=== PATIENT | female | born 1980 | race Caucasian/White ===

== ENCOUNTER 2017-07-02 19:41 | Emergency (ER) | payer BC ==
[2017-07-02] MEDS ORDERED: Sodium Chloride 0.9% 10 ML Syringe FLUSH PRN (19:46)
[2017-07-02] MEDS ORDERED: Ondansetron 4 MG/2 ML SDV IVPUSH ONE (19:46)
[2017-07-02] MEDS ORDERED: Ketorolac 30 MG/ML SDV IVPUSH ONE (19:46)
[2017-07-02] MEDS ORDERED: Sodium Chloride 0.9% 1,000 ML IV ONE (19:46)
[2017-07-02] MEDS ORDERED: Sodium Chloride 0.9% 2.5 ML Syringe FLUSH PRN (19:46)
--- NOTE | 2017-07-02 19:49 | EDM.PDOC ---
ED HPI GENERAL MEDICAL PROBLEM - General Chief Complaint: Abdominal Pain Stated Complaint: ABDOMIANL PAIN Time Seen by Provider: 07/02/17 19:44 - History of Present Illness INITIAL COMMENTS - FREE TEXT/NARRATIVE: HISTORY AND PHYSICAL: History of present illness: Patient is a 37-year-old white female with past medical history significant for cholelithiasis with had appendectomy prior presents with concern of acute abdominal pain this came on suddenly is described as severe patient equivocates regarding nausea there's been no vomiting no diarrhea no trauma no fever no chills no chest pain shortness of breath other concern is poorly localized. Review of systems: As per history of present illness and below otherwise all systems reviewed and negative. Past medical history: As per history of present illness and as reviewed below otherwise noncontributory. Surgical history: As per history of present illness and as reviewed below otherwise noncontributory. Social history: No reported history of drug or alcohol abuse. Family history: As per history of present illness and as reviewed below otherwise noncontributory. Physical exam: HEENT: Atraumatic, normocephalic, pupils reactive, negative for conjunctival pallor or scleral icterus, mucous membranes moist, throat clear, neck supple, nontender, trachea midline. Lungs: Clear to auscultation, breath sounds equal bilaterally, chest nontender. Heart: S1S2, regular, negative for clicks, rubs, or JVD. Abdomen: Soft, nondistended, no localized tenderness. Negative for masses or hepatosplenomegaly. Negative for costovertebral tenderness. Pelvis: Stable nontender. Genitourinary: Deferred. Rectal: Deferred. Extremities: Atraumatic, negative for cords or calf pain. Neurovascular unremarkable. Neuro: Awake, alert, oriented. Cranial nerves II through XII unremarkable. Cerebellum unremarkable. Motor and sensory unremarkable throughout. Exam nonfocal. Diagnostics: CBC CMP and lipase UA hCG CT of midpelvis chest x-ray urine drug screen Therapeutics: Saline 1 L bolus and Toradol 30 mg IV Zofran 4 mg IV Impression: #1 abdominal pain Definitive disposition and diagnosis as appropriate pending reevaluation and review of above. - Related Data Allergies Allergy/AdvReac Type Severity Reaction Status Date / Time amoxicillin Allergy Vomiting Verified 07/02/17 19:48 Home Meds: Home Meds . [No Known Home Meds] 07/02/17 [History] ED ROS GENERAL - Review of Systems Review Of Systems: ROS reveals no pertinent complaints other than HPI. ED EXAM, GENERAL - Physical Exam Exam: See Below (See dictation) Course - Vital Signs Last Recorded V/S: Last Vital Signs Temp 36.1 C 07/02/17 19:44 Pulse 81 07/02/17 21:33 Resp 18 07/02/17 21:33 BP 121/73 07/02/17 21:33 Pulse Ox 96 07/02/17 21:33 - Orders/Labs/Meds Orders: Active Orders 24 hr Category Date Time Status Abdomen Pelvis wo Cont [CT] Stat Exams 07/02/17 19:46 Taken Chest 1V Frontal [CR] Stat Exams 07/02/17 19:46 Taken COMPREHENSIVE METABOLIC PN,CMP [CHEM] Stat Lab 07/02/17 19:57 Received CULTURE BLOOD [BC] Stat Lab 07/02/17 21:05 Received CULTURE BLOOD [BC] Stat Lab 07/02/17 21:20 Received INR,PT,PROTHROMBIN TIME [COAG] Stat Lab 07/02/17 19:57 Received LIPASE [CHEM] Stat Lab 07/02/17 19:57 Received UA W/MICROSCOPIC [URIN] Stat Lab 07/02/17 19:45 Received Sodium Chloride 0.9% [Saline Flush] Med 07/02/17 19:46 Active 10 ml FLUSH ASDIRECTED PRN Sodium Chloride 0.9% [Saline Flush] Med 07/02/17 19:46 Active 2.5 ml FLUSH ASDIRECTED PRN Blood Culture x2 Reflex Set [OM.PC] Stat Oth 07/02/17 19:45 Ordered Saline Lock Insert [OM.PC] Stat Oth 07/02/17 19:45 Ordered Medication Orders Sodium Chloride (Saline Flush) 10 ml FLUSH ASDIRECTED PRN PRN Reason: Keep Vein Open Last Admin: 07/02/17 19:51 Dose: 10 ml Sodium Chloride (Saline Flush) 2.5 ml FLUSH ASDIRECTED PRN PRN Reason: Keep Vein Open Last Admin: 07/02/17 19:50 Dose: 2.5 ml Labs: Laboratory Tests 07/02/17 07/02/17 07/02/17 Range/Units 19:45 19:57 21:22 WBC 9.37 (4.0-11.0) K/uL RBC 5.09 (4.30-5.90) M/uL Hgb 14.0 (12.0-16.0) g/dL Hct 40.9 (36.0-46.0) % MCV 80.4 (80.0-98.0) fL MCH 27.5 (27.0-32.0) pg MCHC 34.2 (31.0-37.0) g/dL RDW Std Deviation 42.6 (28.0-62.0) fl RDW Coeff of Tea 15 (11.0-15.0) % Plt Count 294 (150-400) K/uL MPV 10.60 (7.40-12.00) fL Neut % (Auto) 63.9 (48.0-80.0) % Lymph % (Auto) 27.4 (16.0-40.0) % [place] % (Auto) 6.9 (0.0-15.0) % Eos % (Auto) 1.6 (0.0-7.0) % Baso % (Auto) 0.2 (0.0-1.5) % Neut # (Auto) 6.0 H (1.4-5.7) K/uL Lymph # (Auto) 2.6 H (0.6-2.4) K/uL [place] # (Auto) 0.7 (0.0-0.8) K/uL Eos # (Auto) 0.2 (0.0-0.7) K/uL Baso # (Auto) 0.0 (0.0-0.1) K/uL Nucleated RBC % 0.0 /100WBC Nucleated RBCs # 0 K/uL Urine HCG, Qual NEGATIVE (NEGATIVE) Urine Opiates Screen NEGATIVE (NEGATIVE) Ur Oxycodone Screen NEGATIVE (NEGATIVE) Urine Methadone Screen NEGATIVE (NEGATIVE) Ur Barbiturates Screen NEGATIVE (NEGATIVE) Ur Phencyclidine Scrn NEGATIVE (NEGATIVE) Ur Amphetamine Screen NEGATIVE (NEGATIVE) U Methamphetamines Scrn NEGATIVE (NEGATIVE) U Benzodiazepines Scrn NEGATIVE (NEGATIVE) U Cocaine Metab Screen NEGATIVE (NEGATIVE) U Marijuana (THC) Screen POSITIVE (NEGATIVE) Meds: Medications Generic Name Dose Route Start Last Admin Trade Name Freq PRN Reason Stop Dose Admin Sodium Chloride 10 ml 07/02/17 19:46 07/02/17 19:51 Saline Flush FLUSH 10 ml ASDIRECTED PRN Administration Keep Vein Open Sodium Chloride 2.5 ml 07/02/17 19:46 07/02/17 19:50 Saline Flush FLUSH 2.5 ml ASDIRECTED PRN Administration Keep Vein Open Discontinued Medications Generic Name Dose Route Start Last Admin Trade Name Freq PRN Reason Stop Dose Admin Sodium Chloride 1,000 mls @ 999 mls/hr 07/02/17 19:46 07/02/17 19:58 Normal Saline IV 07/02/17 20:46 999 mls/hr STAT ONE Administration Ketorolac Tromethamine 30 mg 07/02/17 19:46 07/02/17 19:58 Toradol IVPUSH 07/02/17 19:47 30 mg ONETIME ONE Administration Ondansetron HCl 4 mg 07/02/17 19:46 07/02/17 19:58 Zofran IVPUSH 07/02/17 19:47 4 mg ONETIME ONE Administration Departure - Departure Time of Disposition: 22:15 Disposition: Home, Self-Care 01 Condition: Good Clinical Impression: Abdominal pain - Discharge Information Forms: ED Department Discharge Additional Instructions: The following information is given to patients seen in the emergency department who are being discharged to home. This information is to outline your options for follow-up care. We provide all patients seen in our emergency department with a follow-up referral. The need for follow-up, as well as the timing and circumstances, are variable depending upon the specifics of your emergency department visit. If you don't have a primary care physician on staff, we will provide you with a referral. We always advise you to contact your personal physician following an emergency department visit to inform them of the circumstance of the visit and for follow-up with them and/or the need for any referrals to a consulting specialist. The emergency department will also refer you to a specialist when appropriate. This referral assures that you have the opportunity for followup care with a specialist. All of these measure are taken in an effort to provide you with optimal care, which includes your followup. Under all circumstances we always encourage you to contact your private physician who remains a resource for coordinating your care. When calling for followup care, please make the office aware that this follow-up is from your recent emergency room visit. If for any reason you are refused follow-up, please contact the [facility] emergency department at and asked to speak to the emergency department charge nurse. JUAN A [facility] Specialty Care - General Surgery Professional Building [address] [place] [address], [address] [place] [address] Clear liquids 24 hours follow-up primary medical doctor schedule general surgery appointment above call to schedule return as needed as discussed - My Orders Last 24 Hours: My Active Orders 07/02/17 19:45 UA W/MICROSCOPIC [URIN] Stat Blood Culture x2 Reflex Set [OM.PC] Stat Saline Lock Insert [OM.PC] Stat 07/02/17 19:46 Abdomen Pelvis wo Cont [CT] Stat Chest 1V Frontal [CR] Stat Sodium Chloride 0.9% [Saline Flush] 10 ml FLUSH ASDIRECTED PRN Sodium Chloride 0.9% [Saline Flush] 2.5 ml FLUSH ASDIRECTED PRN 07/02/17 19:57 COMPREHENSIVE METABOLIC PN,CMP [CHEM] Stat INR,PT,PROTHROMBIN TIME [COAG] Stat LIPASE [CHEM] Stat 07/02/17 21:05 CULTURE BLOOD [BC] Stat 07/02/17 21:20 CULTURE BLOOD [BC] Stat - Assessment/Plan Last 24 Hours: My Active Orders 07/02/17 19:45 UA W/MICROSCOPIC [URIN] Stat Blood Culture x2 Reflex Set [OM.PC] Stat Saline Lock Insert [OM.PC] Stat 07/02/17 19:46 Abdomen Pelvis wo Cont [CT] Stat Chest 1V Frontal [CR] Stat Sodium Chloride 0.9% [Saline Flush] 10 ml FLUSH ASDIRECTED PRN Sodium Chloride 0.9% [Saline Flush] 2.5 ml FLUSH ASDIRECTED PRN 07/02/17 19:57 COMPREHENSIVE METABOLIC PN,CMP [CHEM] Stat INR,PT,PROTHROMBIN TIME [COAG] Stat LIPASE [CHEM] Stat 07/02/17 21:05 CULTURE BLOOD [BC] Stat 07/02/17 21:20 CULTURE BLOOD [BC] Stat
[2017-07-02 22:08] LABS: CHLORIDE,CL 107 mmol/L (98-107); SODIUM,NA 139 mmol/L (136-145)
--- NOTE | 2017-07-04 16:19 | CR ---
EXAM DATE: 07/02/17 PATIENT'S AGE: 37 Patient: CONOR SANTOYO Facility: [place], [place] Site . Site : 1980 Study: XRay Chest [id number]/17/2018 9:41:16 PM Ordering Physician: Sim Brito Final Report: INDICATION: Chest pain; shortness of breath. TECHNIQUE: Portable AP chest. FINDINGS: Normal size cardiac silhouette. Clear lung sood with no evidence of acute pneumonic infiltrates or CHF. No pneumothorax or pleural effusion. Impression:negative chest. Dictated by Drea Rush MD @ Jul 02 2017 9:43PM (Electronic Signature) Report Signed by Proxy. MYRANDA
--- NOTE | 2017-07-04 16:19 | CT ---
EXAM DATE: 07/02/17 PATIENT'S AGE: 37 Patient: CONOR SANTOYO Facility: [place], [place] Site . Site : 1980 Study: CT Abdomen/Pelvis [id number]/17/2018 9:51:54 PM Ordering Physician: Sim Brito Final Report: INDICATION: EPIGASTRIC PAIN BEGAN 2-[address] ABDOMEN AND PELVIS WITHOUT CONTRAST TECHNIQUE: Multidetector CT imaging was performed through the abdomen and pelvis without intravenous or oral contrast (renal stone CT protocol). Coronal and sagittal reconstructions were generated. COMPARISON: None. FINDINGS: No stones are visualized within the kidneys, ureters, or urinary bladder. There is no ureteral dilation, hydronephrosis, or perinephric/ periureteral stranding to suggest ureteral obstruction. Included portions of the lower chest show the lung bases to be clear. No abnormalities are demonstrated in the unenhanced liver, spleen, gallbladder, pancreas, stomach, and adrenals. Bowel loops are of normal caliber and demonstrate no wall thickening. The appendix is not clearly identified but no findings suggestive of appendicitis are demonstrated. No free fluid or free air is identified. The abdominal aorta appears normal in caliber. No abnormally enlarged lymph nodes are seen. The urinary bladder, uterus, and adnexal regions are within normal limits. Visualized bones show no acute findings. IMPRESSION: No acute abnormality identified. No cause for the patient`s symptoms is apparent. CARLOS URIBE MD [employer] Dictated by: Zach Uribe MD @ 07/02/2017 22:01:38 (Electronic Signature) Report Signed by Proxy. MYRANDA
== END 2017-07-02 22:35 | disposition home or self-care (01) ==
LOC: MW.ED 19:41
DX: R10.9 Unspecified abdominal pain (principal); Z90.49 Acquired absence of other specified parts of digestive tract; Z88.1 Allergy status to other antibiotic agents
CPT/HCPCS: 36415; 71045; 74176; 80053; 80305; 81001; 81025; 83690; 85025; 85610; 87040; 96361; 96374; 96375; 99285; J1885; J2405; J7040; 99283

== ENCOUNTER 2020-11-25 10:08 | Emergency (ER) | payer OTHER ==
[2020-11-25] MEDS ORDERED: Ketorolac 60 MG/2 ML SDV IM ONE (12:21)
[2020-11-25] MEDS ORDERED: Acetaminophen 500 MG Tab PO ONE (12:21)
--- NOTE | 2020-11-25 14:37 | CR ---
INDICATION: Low back injury 2 days ago TECHNIQUE: Three views of the lumbar spine COMPARISON: none FINDINGS: The lumbar vertebral bodies are of normal height. No fracture is demonstrated. There is normal spinal alignment. There is no significant degenerative disc height loss. The paraspinal soft tissues are unremarkable. IMPRESSION: No acute abnormality. Dictated by Jania Poon MD @ 11/25/2020 2:35:[address] Jania Poon @ Nov 25 2020 2:35PM
--- NOTE | 2020-11-25 14:43 | EDM.PDOC ---
ED HPI GENERAL MEDICAL PROBLEM - General Chief Complaint: Back Pain or Injury Stated Complaint: PULLED MUSCLE IN BACK Time Seen by Provider: 11/25/20 10:29 Source of Information: Reports: Patient History Limitations: Reports: No Limitations - History of Present Illness INITIAL COMMENTS - FREE TEXT/NARRATIVE: HISTORY AND PHYSICAL: History of present illness: Patient is a 40-year-old female who presents emergency room today with concern of low back pain x2 days. Patient states that her back pain started approximately 2 days ago when she was doing laundry and states that she had a towel full of dirty clothes that she threw over her back. Patient states that the pile of close was heavier than she anticipated and she did not use proper body mechanics and felt a strain of her low back. Patient states that since then, she has had pain with moving and has to move slower. Patient denies any loss or retention of bowel bladder function or saddle anesthesia. Patient states that she did use IV drug use approximately 10 years ago but has not used any IV drugs since. Patient denies any cancer history. Patient states that she is sexually active and not on control so there is a chance of being . Patient denies fever, chills, chest pain, shortness of breath, or cough. Denies headache, neck stiff ness, change in vision, syncope, or near syncope. Denies na usea, vomiting, abdominal pain, diarrhea, constipation, or dysuria. Has not noted any blood in urine or stool. Patient has been eating and drinking appropriately. Review of systems: As per history of present illness and below otherwise all systems reviewed and negative. Past medical history: As per history of present illness and as reviewed below otherwise noncontributory. Surgical history: As per history of present illness and as reviewed below otherwise noncontributory. Social history: See social history for further information Family history: As per history of present illness and as reviewed below otherwise noncontributory. Physical exam: General: Patient is alert, oriented, and in no acute distress. Patient sitting comfortably on exam table. Vitals stable and reviewed by me. HEENT: Atraumatic, normocephalic, pupils equal and reactive bilaterally, negative for conjunctival pallor or scleral icterus, mucous membranes moist, TMs normal bilaterally, throat clear, neck supple, nontender, trachea midline. No drooling or trismus noted. No meningeal signs. No hot potato voice noted. Lungs: Clear to auscultation, breath sounds equal bilaterally, chest nontender. Heart: S1S2, regular rate and rhythm without overt murmur Abdomen: Soft, nondistended, nontender. Negative for masses or hepatosplenomegaly. Negative for costovertebral tenderness. Pelvis: Stable nontender. Genitourinary: Deferred. Rectal: Deferred. Skin: Intact, warm, dry. No lesions or rashes noted. Extremities/musculoskeletal: No obvious deformity of the complete spine. No step-offs, crepitus, or point tenderness to palpation of the complete spine. Patient does have tenderness to palpation of the left-sided paraspinous muscle of the lumbar spine. Patient does have full range of motion of the complete spine but does have pain with range of motion of the lumbar spine. Patellar reflexes intact bilaterally. Straight leg raise intact bilaterally. Heel/toe gait intact. Patient is able to ambulate today in the ED. Otherwise, atraumatic, negative for cords or calf pain. Neurovascular unremarkable. Neuro: Awake, alert, oriented. Cranial nerves II through XII unremarkable. Cerebellum unremarkable. Motor and sensory unremarkable throughout. Exam nonfocal. Notes: hcg negative. Signs and symptoms that were prompt return to the ED thoroughly discussed with patient. Discussed importance for follow-up with her primary care provider. Voices understanding and is agreeable to plan of care. Denies any further questions or concerns at this time. Diagnostics: Urine hCG, lumbar x-ray Therapeutics: Toradol, Tylenol (I did offer Norflex IM injection, however, patient does not have a ride today) Prescription: Diclofenac, Flexeril Impression: Acute low back pain Plan: 1. When resting please lay on a flat firm surface. Limit your mobility to prevent muscle stiffness. Get up to ambulate/move around/gentle stretching multiple times throughout the day. May alternate heat and ice to painful areas. 2. Tylenol as needed for back pain. Otherwise, take the prescribed Flexeril and diclofenac as directed. Diclofenac as an anti-inflammatory medication so do not take any additional NSAIDs with this medication, such as naproxen, ibuprofen, or Aleve. Flexeril, this medication may cause drowsiness, so do not take it while driving or needing to be functioning outside of the home. 3. Follow-up with your primary care provider as discussed. Return to the ED as needed and as discussed. Definitive disposition and diagnosis as appropriate pending reevaluation and review of above. low back Pain Score (Numeric/FACES): 4 - Related Data Allergies Allergy/AdvReac Type Severity Reaction Status Date / Time amoxicillin Allergy Vomiting Verified 11/25/20 11:33 Home Meds: Home Meds Cyclobenzaprine [Flexeril] 10 mg PO TID PRN #9 tab 11/25/20 [Rx] Diclofenac Sodium [Voltaren] 75 mg PO BIDMEALS PRN #15 tab.cr 11/25/20 [Rx] Pantoprazole [ProTONIX] 40 mg PO DAILY 11/25/20 [History] Past Medical History Gastrointestinal History: Reports: GERD - Infectious Disease History Infectious Disease History: Reports: Chicken Pox, Hepatitis C - Past Surgical History HEENT Surgical History: Reports: Oral Surgery, Tonsillectomy GI Surgical History: Reports: Appendectomy Social & Family History - Family History Cardiac: Reports: CAD, Heart Failure, Hypertension Neurological: Reports: Parkinson's - Tobacco Use Tobacco Use Status *Q: Never Tobacco User - Caffeine Use Caffeine Use: Reports: Coffee, Energy Drinks, Soda, Tea - Recreational Drug Use Recreational Drug Use: Yes Drug Use in Last 12 Months: Yes Recreational Drug Type: Reports: Marijuana/Hashish Recreational Drug Use Frequency: Daily ED ROS GENERAL - Review of Systems Review Of Systems: Comprehensive ROS is negative, except as noted in HPI. ED EXAM, GENERAL - Physical Exam Exam: See Below (See dictation) Course - Vital Signs Last Recorded V/S: Last Vital Signs Temp 96.6 F L 11/25/20 13:16 Pulse 76 11/25/20 13:16 Resp 16 11/25/20 13:16 BP 110/70 11/25/20 13:16 Pulse Ox 97 11/25/20 13:16 - Orders/Labs/Meds Labs: Laboratory Tests 11/25/20 Range/Units 12:04 Urine HCG, Qual NEGATIVE (NEGATIVE) Meds: Medications Discontinued Medications Generic Name Dose Route Start Last Admin Trade Name Freq PRN Reason Stop Dose Admin Acetaminophen 1,000 mg 11/25/20 12:21 11/25/20 13:14 Acetaminophen 500 Mg Tab PO 11/25/20 12:22 1,000 mg ONETIME ONE Administration Ketorolac Tromethamine 60 mg 11/25/20 12:21 11/25/20 13:13 Ketorolac 60 Mg/2 Ml Sdv IM 11/25/20 12:22 60 mg ONETIME ONE Administration Departure - Departure Time of Disposition: 14:42 Disposition: Home, Self-Care 01 Clinical Impression: Acute low back pain Qualifiers: Back pain laterality: left Sciatica presence: unspecified whether sciatica present Qualified Code(s): M54.5 - Low back pain - Discharge Information Prescriptions: Cyclobenzaprine [Flexeril] 10 mg PO TID PRN #9 tab PRN Reason: Spasms Diclofenac Sodium [Voltaren] 75 mg PO BIDMEALS PRN #15 tab.cr PRN Reason: Pain Instructions: Acute Back Pain, Adult Referrals: Veronica Richards DO [Primary Care Provider] - Forms: ED Department Discharge Additional Instructions: The following information is given to patients seen in the emergency department who are being discharged to home. This information is to outline your options for follow-up care. We provide all patients seen in our emergency department with a follow-up referral. The need for follow-up, as well as the timing and circumstances, are variable depending upon the specifics of your emergency department visit. If you don't have a primary care physician on staff, we will provide you with a referral. We always advise you to contact your personal physician following an emergency department visit to inform them of the circumstance of the visit and for follow-up with them and/or the need for any referrals to a consulting specialist. The emergency department will also refer you to a specialist when appropriate. This referral assures that you have the opportunity for follow-up care with a specialist. All of these measure are taken in an effort to provide you with optimal care, which includes your follow-up. Under all circumstances we always encourage you to contact your private physician who remains a resource for coordinating your care. When calling for follow-up care, please make the office aware that this follow-up is from your recent emergency room visit. If for any reason you are refused follow-up, please contact the [facility] Emergency Department at and asked to speak to the emergency department charge nurse. [facility] Primary Care [address] [place] [id number] [facility] [address] [place] [id number] 1. When resting please lay on a flat firm surface. Limit your mobility to prevent muscle stiffness. Get up to ambulate/move around/gentle stretching multiple times throughout the day. May alternate heat and ice to painful areas. 2. Tylenol as needed for back pain. Otherwise, take the prescribed Flexeril and diclofenac as directed. Diclofenac as an anti-inflammatory medication so do not take any additional NSAIDs with this medication, such as naproxen, ibuprofen, or Aleve. Flexeril, this medication may cause drowsiness, so do not take it while driving or needing to be functioning outside of the home. 3. Follow-up with your primary care provider as discussed. Return to the ED as needed and as discussed. Sepsis Event Note (ED) - Evaluation Sepsis Screening Result: No Definite Risk - Focused Exam Vital Signs: Vital Signs Temp Pulse Resp BP Pulse Ox 11/25/20 13:16 96.6 F L 76 16 110/70 97 11/25/20 11:31 96.5 F L 78 18 140/84 95
== END 2020-11-25 15:05 | disposition home or self-care (01) ==
LOC: MW.ED 10:08
DX: M54.5 Low back pain (principal); Z88.0 Allergy status to penicillin
CPT/HCPCS: 72100; 81025; 96372; 99283; A9270; J1885

== ENCOUNTER 2020-11-30 08:16 | Emergency (ER) | payer OTHER ==
[2020-11-30] MEDS ORDERED: diphenhydrAMINE 50 MG/ML SDV IVPUSH ONE (08:51)
[2020-11-30] MEDS ORDERED: Haloperidol Lactate 5 MG/ML SDV IM ONE (08:51)
[2020-11-30 09:35] LABS: BLOOD UREA NITROGEN,BUN 12 mg/dL (7.0-18.0); CHLORIDE,CL 105 mmol/L (98-107); GLUCOSE RANDOM 113 mg/dL (74-106); LIPASE 68 U/L (73-393); POTASSIUM,K 3.8 mmol/L (3.5-5.1); SODIUM,NA 140 mmol/L (136-145)
--- NOTE | 2020-11-30 11:31 | US ---
INDICATION: Abdominal pain. TECHNIQUE: Abdominal ultrasound: Grayscale and color Doppler images. FINDINGS: Liver: No mass lesion. The liver span is 16.5 cm. Portal vein flow is hepatopetal. Gallbladder: Mobile stone. Wall is normal thickness 3 mm. Common bile duct: 3 mm. Right kidney: Unremarkable. 11.2 cm in length. IMPRESSION: 1. Gallstone. No biliary dilatation. 2. No tenderness elicited over the gallbladder with palpation. Dictated by Tano Alexis MD @ 11/30/2020 11:30:[address] Tano Alexis @ Nov 30 2020 11:30AM
--- NOTE | 2020-11-30 12:38 | EDM.PDOC ---
ED HPI GENERAL MEDICAL PROBLEM - General Chief Complaint: Gastrointestinal Problem Stated Complaint: FOOD PIOSONING CRAMPING PAIN Time Seen by Provider: 11/30/20 08:18 - History of Present Illness INITIAL COMMENTS - FREE TEXT/NARRATIVE: CHIEF COMPLAINT(S): "I got food poisoning." HISTORY OF PRESENT ILLNESS: This is a 40-year-old woman with a past medical history of GERD who comes to the emergency department with a chief complaint of "I got food poisoning." The patient states that on November 01, 2020 she ate in the evening and she woke up in the morning with nausea, vomiting, diarrhea and cramping abdominal pain on November 02, 2020. She states that since then every time she eats she gets some cramping in her abdomen which she describes as 8 out of 10 without any radiation. She states that eating seems to make the pain worse and she has some associated diarrhea. She states that she is has not had any nausea and vomiting but does feel intermittently bloated. She denies any melena, hematochezia, hematemesis or bilious emesis. She states that she has not yet tried any pain medication but she has had Pepto-Bismol and Gas-X and her pantoprazole which have not seem to help. She states that her pain seems to be fine during most of the day and then when she is at work it seems to worsen. She states that she has had decreased sleeping. She denies any vaginal bleeding, vaginal discharge or back pain. REVIEW OF SYSTEMS: Constitutional: Denies fever, chills. Eyes: Denies eye pain Ears, Nose, Mouth, & Throat: Denies earache Cardiovascular: Denies chest pain Respiratory: Denies shortness of breath Gastrointestinal: Positive for abdominal pain and diarrhea. Denies nausea, vomiting hematochezia, hematemesis, bilious emesis Genitourinary: Denies hematuria, dysuria, vaginal bleeding, vaginal discharge Skin:Denies a rash MSK: Denies joint pain Neurological: Denies blurred vision Psychiatric: Denies depression PAST MEDICAL HISTORY: As per history of present illness and as reviewed below otherwise noncontributory. SURGICAL HISTORY: As per history of present illness and as reviewed below otherwise noncontributory. SOCIAL HISTORY: As per history of present illness and as reviewed below otherwise noncontributory. FAMILY HISTORY: As per history of present illness and as reviewed below otherwise noncontributory. EXAMINATION OF ORGAN SYSTEMS/BODY AREAS: Constitutional: Blood pressure is 152/64, heart rate 68, respiratory rate 18 with an oxygen saturation of 98% on room air. Temperature 35.9 temporally General: Anxious appearing woman who is squirming around in bed Psychiatric: Anxious appearing but is cooperative Eyes: No scleral icterus or conjunctival erythema ENMT: Moist mucous membranes. No pharyngeal erythema Cardiovascular: Regular, rate, and rhythm. No gallops, murmurs, or rubs. Bilateral upper extremity pulses symmetric and intact. No peripheral edema. No JVD. Respiratory: Lungs clear to auscultation bilaterally. No wheezes, rales, or rhonchi. Gastrointestinal: Soft, nondistended, tenderness to palpation in the epigastric and right upper quadrant. Positive Prakash's. Negative McBurney's. No rebound or guarding. Normoactive bowel sounds Genitourinary: No suprapubic tenderness no CVA tenderness musculoskeletal: Normal range of motion. Skin: No lesions or abrasions. Neurological: Alert, GCS 15 MEDICAL DECISION MAKING AND COURSE IN THE ED WITH INTERPRETATION/REVIEW OF DIAGNOSTIC STUDIES: This is a 40-year-old woman with a past medical history of medical marijuana use who comes to the emergency department with approximately 2 weeks of epigastric pain associated with diarrhea who no longer has any vomiting with some continued nausea. At this time the patient's vitals continue to remain stable. We will provide the patient with Haldol and Benadryl for pain and nausea relief. At this time differential includes cholecystitis, exacerbation of her GERD versus marijuana hyperemesis. Will obtain CBC, CMP, lipase, urinalysis. Will obtain a right upper quadrant ultrasound. We will provide the patient with 1 L of lactated Ringer's bolus Laboratory: CBC is unremarkable. CMP unremarkable. Lipase normal. Urinalysis was trace for hematuria otherwise unremarkable. The radiological images were viewed by myself along with reading the report from the radiologist. Right upper quadrant ultrasound reveals cholelithiasis without any evidence of cholecystitis. Patient was able to tolerate p.o. and was feeling much better. I did discuss results with the patient. Encouraged patient to follow-up with general surgery if she had continued pain or to return to the emergency department. She was amenable to discharge at this time and had no further questions. DISPOSITION: The patient was discharged home in stable condition. The patient will follow up with general surgery in 5 to 7 days CONDITION: Fair PROCEDURES: None FINAL IMPRESSION(S)/DIAGNOSES: Acute right upper quadrant abdominal pain secondary to cholelithiasis Dominick Johnson M.D. Abdomen Pain Score (Numeric/FACES): 10 - Related Data Allergies Allergy/AdvReac Type Severity Reaction Status Date / Time amoxicillin Allergy Vomiting Verified 11/30/20 08:35 Home Meds: Home Meds Pantoprazole [ProTONIX] 40 mg PO DAILY 11/25/20 [History] Past Medical History Gastrointestinal History: Reports: GERD - Infectious Disease History Infectious Disease History: Reports: Chicken Pox, Hepatitis C - Past Surgical History HEENT Surgical History: Reports: Oral Surgery, Tonsillectomy GI Surgical History: Reports: Appendectomy Social & Family History - Family History Cardiac: Reports: CAD, Heart Failure, Hypertension Neurological: Reports: Parkinson's - Tobacco Use Tobacco Use Status *Q: Never Tobacco User - Caffeine Use Caffeine Use: Reports: None - Recreational Drug Use Recreational Drug Use: Yes Recreational Drug Type: Reports: Marijuana/Hashish Recreational Drug Use Frequency: Daily ED ROS GENERAL - Review of Systems Review Of Systems: See Below ED EXAM, GENERAL - Physical Exam Exam: See Below Course - Vital Signs Last Recorded V/S: Last Vital Signs Temp 35.9 C L 11/30/20 08:35 Pulse 65 11/30/20 12:42 Resp 16 11/30/20 12:42 BP 117/62 11/30/20 12:42 Pulse Ox 98 11/30/20 12:42 - Orders/Labs/Meds Labs: Laboratory Tests 11/30/20 11/30/20 11/30/20 Range/Units 08:33 08:57 08:57 WBC 6.02 (4.0-11.0) K/uL RBC 4.41 (4.30-5.90) M/uL Hgb 12.2 (12.0-16.0) g/dL Hct 36.8 (36.0-46.0) % MCV 83.4 (80.0-98.0) fL MCH 27.7 (27.0-32.0) pg MCHC 33.2 (31.0-37.0) g/dL RDW Std Deviation 45.1 (28.0-62.0) fl RDW Coeff of Tea 15 (11.0-15.0) % Plt Count 229 (150-400) K/uL MPV 10.80 (7.40-12.00) fL Neut % (Auto) 44.2 L (48.0-80.0) % Lymph % (Auto) 40.9 H (16.0-40.0) % [place] % (Auto) 10.1 (0.0-15.0) % Eos % (Auto) 4.5 (0.0-7.0) % Baso % (Auto) 0.3 (0.0-1.5) % Neut # (Auto) 2.7 (1.4-5.7) K/uL Lymph # (Auto) 2.5 H (0.6-2.4) K/uL [place] # (Auto) 0.6 (0.0-0.8) K/uL Eos # (Auto) 0.3 (0.0-0.7) K/uL Baso # (Auto) 0.0 (0.0-0.1) K/uL Nucleated RBC % 0.0 /100WBC Nucleated RBCs # 0 K/uL Sodium 140 (136-145) mmol/L Potassium 3.8 (3.5-5.1) mmol/L Chloride 105 (98-107) mmol/L Carbon Dioxide 26.0 (21.0-32.0) mmol/L BUN 12 (7.0-18.0) mg/dL Creatinine 0.8 (0.6-1.0) mg/dL Est Cr Clr Drug Dosing 90.90 mL/min Estimated GFR (MDRD) > 60.0 ml/min Glucose 113 H (74-106) mg/dL Calcium 7.7 L (8.5-10.1) mg/dL Total Bilirubin 0.2 (0.2-1.0) mg/dL AST 30 (15-37) IU/L ALT 41 (14-63) IU/L Alkaline Phosphatase 85 (46-116) U/L Total Protein 6.8 (6.4-8.2) g/dL Albumin 3.2 L (3.4-5.0) g/dL Globulin 3.6 (2.6-4.0) g/dL Albumin/Globulin Ratio 0.9 (0.9-1.6) Lipase 68 L (73-393) U/L Urine Color YELLOW Urine Appearance CLEAR Urine pH 6.0 (5.0-8.0) Ur Specific [place] 1.025 (1.001-1.035) Urine Protein NEGATIVE (NEGATIVE) mg/dL Urine Glucose (UA) NEGATIVE (NEGATIVE) mg/dL Urine Ketones NEGATIVE (NEGATIVE) mg/dL Urine Occult Blood TRACE-INTACT H (NEGATIVE) Urine Nitrite NEGATIVE (NEGATIVE) Urine Bilirubin NEGATIVE (NEGATIVE) Urine Urobilinogen 0.2 (<2.0) EU/dL Ur Leukocyte Esterase NEGATIVE (NEGATIVE) Urine RBC 0-1 (0-2/HPF) Urine WBC 0-2 (0-5/HPF) Ur Epithelial Cells FEW (NONE-FEW) Urine Bacteria FEW (NEGATIVE) Urine Mucus LIGHT (NONE-MOD) Meds: Medications Discontinued Medications Generic Name Dose Route Start Last Admin Trade Name Freq PRN Reason Stop Dose Admin Diphenhydramine HCl 50 mg 11/30/20 08:51 11/30/20 09:06 Diphenhydramine 50 Mg/Ml Sdv IVPUSH 11/30/20 08:52 50 mg ONETIME ONE Administration Haloperidol Lactate 5 mg 11/30/20 08:51 11/30/20 09:06 Haloperidol Lactate 5 Mg/Ml Sdv IM 11/30/20 08:52 5 mg ONETIME ONE Administration Departure - Departure Time of Disposition: 12:36 Disposition: Home, Self-Care 01 Condition: Fair Clinical Impression: Cholelithiasis without obstruction - Discharge Information *PRESCRIPTION DRUG MONITORING PROGRAM REVIEWED*: No *COPY OF PRESCRIPTION DRUG MONITORING REPORT IN PATIENT PRAMOD: No Instructions: Cholelithiasis, [id number] Referrals: Veronica Richards DO [Primary Care Provider] - Forms: ED Department Discharge Additional Instructions: Your evaluated today on an emergent basis. At this time we did find a gallstone in your gallbladder but no signs of infection. If you have continued symptoms, fever, inability to eat or drink I would like you to return to the emergency department. If not I would like you to follow-up with general surgery so that she can have evaluated for outpatient removal of your gallbladder. [facility] [place] - General Surgery Professional Building [address] [place] [address], [address] [place] [address] The patient is informed of any results of their evaluation and diagnostic workup and all questions are answered. They are given discharge instructions and return precautions. The patient is stable for discharge. The patient states they understand and agree with the plan and that they will return if their symptoms get worse or if they have any new concerns. The following information is given to patients seen in the emergency department who are being discharged to home. This information is to outline your options for follow-up care. We provide all patients seen in our emergency department with a follow-up referral. The need for follow-up, as well as the timing and circumstances, are variable depending upon the specifics of your emergency department visit. If you don't have a primary care physician on staff, we will provide you with a referral. We always advise you to contact your personal physician following an emergency department visit to inform them of the circumstance of the visit and for follow-up with them and/or the need for any referrals to a consulting spe cialist. The emergency department will also refer you to a specialist when appropriate. This referral assures that you have the opportunity for follow-up care with a specialist. All of these measure are taken in an effort to provide you with optimal care, which includes your follow-up. Under all circumstances we always encourage you to contact your private physician who remains a resource for coordinating your care. When calling for follow-up care, please make the office aware that this follow-up is from your recent emergency room visit. If for any reason you are refused follow-up, please contact the [facility] Emergency Department at and asked to speak to the emergency department charge nurse. Sepsis Event Note (ED) - Focused Exam Vital Signs: Vital Signs Temp Pulse Resp BP Pulse Ox 11/30/20 12:42 65 16 117/62 98 11/30/20 09:08 72 16 132/82 98 11/30/20 08:35 35.9 C L 68 18 152/64 H 98
== END 2020-11-30 12:46 | disposition home or self-care (01) ==
LOC: MW.ED 08:16
DX: K80.20 Calculus of gallbladder without cholecystitis without obstruction (principal); Z88.0 Allergy status to penicillin; K21.9 Gastro-esophageal reflux disease without esophagitis; Z79.899 Other long term (current) drug therapy
CPT/HCPCS: 36415; 76705; 80053; 81001; 83690; 85025; 96374; 96375; 99284; J1200; J1630; 99283

== ENCOUNTER 2020-12-04 05:54 | Observation (INO) | payer OTHER ==
[2020-12-04] MEDS ORDERED: Sodium Chloride 0.9% 1,000 ML IV ONE (06:20)
[2020-12-04] MEDS ORDERED: Ondansetron 4 MG/2 ML SDV IVPUSH ONE (06:20)
[2020-12-04] MEDS ORDERED: Sodium Chloride 0.9% 2.5 ML Syringe FLUSH PRN ×2 (06:20→11:51)
[2020-12-04] MEDS ORDERED: Dicyclomine 10 MG Cap PO ONE (06:20)
[2020-12-04] MEDS ORDERED: Ketorolac 15 MG/ML SDV IVPUSH ONE (06:20)
[2020-12-04] MEDS ORDERED: Sodium Chloride 0.9% 10 ML Syringe FLUSH PRN ×2 (06:20→11:51)
--- NOTE | 2020-12-04 06:20 | EDM.PDOC ---
<Pascual Anna - Last Filed: 12/05/20 06:03> ED HPI GENERAL MEDICAL PROBLEM - General Chief Complaint: Abdominal Pain Stated Complaint: GALL BLADDER PAIN Time Seen by Provider: 12/04/20 06:11 - History of Present Illness INITIAL COMMENTS - FREE TEXT/NARRATIVE: HISTORY AND PHYSICAL: History of present illness: This is a 40-year-old female with history significant for an appendectomy, hepatitis C, cholelithiasis, who presents to the ER today complaining of severe pain to her right upper quadrant and radiating to her back. Patient reports that she has been here twice within the last couple weeks secondary to severe pain in her gallbladder. Patient denies any recent fevers, shakes, chills. Patient reports nausea with no vomiting. Patient does admit to diarrhea for the last 2 to 3 weeks. Patient denies any dysuria, frequency, urgency, dark-colored urine. Patient denies any melena, bright red blood per rectum, erin colored stools. Patient denies any jaundice. Patient denies any chest pain or shortness of breath. Patient denies any cough cold or rhinorrhea. Patient reports decreased p.o. intake secondary to pain. Patient denies any vaginal discharge or discomfort. Patient reports that the pain woke her up from sleep today. Review of systems: As per history of present illness and below otherwise all systems reviewed and negative. Past medical history: As per history of present illness and as reviewed below otherwise noncontributory. Surgical history: As per history of present illness and as reviewed below otherwise noncontributory. Social history: No reported history of drug abuse. Family history: As per history of present illness and as reviewed below otherwise noncontributory. Physical exam: This patient was seen and evaluated during the 2019 SARS-CoV-2 novel coronavirus pandemic period. Community viral transmission is ongoing at time of this encounter and the emergency department is operating under pandemic response procedures. Constitutional: Patient is oriented to person, place, and time. Appears well- developed and well-nourished. No distress. HEENT: Moist mucous membranes Head: Normocephalic and atraumatic Eyes: Right eye exhibits no discharge. Left eye exhibits no discharge. No scleral icterus Neck: Normal range of motion. No tracheal deviation present. Cardiovascular: Normal rate and regular rhythm. Pulmonary: Effort normal, no respiratory distress. Abd: Soft, nondistended, no rebound/guarding, no psoas or obturator signs, no tenderness at Mcberney's point, no Prakash's sign. Pt does not present with an exam that would be consistent with an acute surgical abdomen at this time. Severe tenderness to palpation to the right upper quadrant. Musculoskeletal: Normal range of motion Neurologic: Alert and oriented to person, place and time. Skin: [place], warm and dry. Psychiatric: Normal mood and affect. Behavior is normal. Judgment and thought content normal. Nursing note and vital signs have been reviewed Diagnostics: CBC, CMP, lipase, ultrasound right upper quadrant to rule out acute cholecystitis or choledocholithiasis. Therapeutics: Fentanyl, Toradol, NSS, Zofran Assessment and plan: 40-year-old female who presents ER today complaining of severe right upper quadrant pain similar to the pain that she was here for last week and was diagnosed with cholelithiasis. Patient reports that the pain woke her from sleep today and is in the right upper quadrant and appears to be consistent with biliary pain. Patient will be given adequate analgesia here in the ED and will obtain a repeat ultrasound to determine if there is any stones that passed and are causing ductal dilatation. Patient is otherwise clinically and hemodynamically stable. 7 AM: Care signed out to Dr. Hogue with labs and ultrasound of the right upper quadrant pending. Disposition will be made per Dr. Hogue's result findings. Definitive disposition and diagnosis as appropriate pending reevaluation and review of above. Abdomen Pain Score (Numeric/FACES): 10 - Related Data Allergies Allergy/AdvReac Type Severity Reaction Status Date / Time amoxicillin Allergy Vomiting Verified 12/04/20 13:48 Home Meds: Home Meds Pantoprazole [ProTONIX] 40 mg PO DAILY 11/25/20 [History] ClonazePAM [KlonoPIN] 0.5 mg PO DAILY PRN 12/04/20 [History] Past Medical History Cardiovascular History: Reports: None Respiratory History: Reports: None Gastrointestinal History: Reports: GERD, Other (See Below) Other Gastrointestinal History: Gallstones Genitourinary History: Reports: None [employer] History: Reports: None Musculoskeletal History: Reports: None Neurological History: Reports: None Psychiatric History: Reports: None Endocrine/Metabolic History: Reports: None Insulin Pump Model and Hand Rug Cleaner: None Hematologic History: Reports: None Immunologic History: Reports: None Oncologic (Cancer) History: Reports: None Dermatologic History: Reports: None - Infectious Disease History Infectious Disease History: Reports: Chicken Pox, Hepatitis C - Past Surgical History Head Surgeries/Procedures: Reports: None HEENT Surgical History: Reports: Oral Surgery, Tonsillectomy GI Surgical History: Reports: Appendectomy Social & Family History - Family History Cardiac: Reports: CAD, Heart Failure, Hypertension Neurological: Reports: Parkinson's - Caffeine Use Caffeine Use: Reports: None - Recreational Drug Use Recreational Drug Use: Yes Drug Use in Last 12 Months: Yes Recreational Drug Type: Reports: Other (see below) Other Recreational Drug Type: Medical Marijuana ED ROS GENERAL - Review of Systems Review Of Systems: See Below ED EXAM, GENERAL - Physical Exam Exam: See Below Departure - Departure Disposition: Refer to Observation Clinical Impression: Cholelithiasis, Abdominal pain - Discharge Information <James Hogue - Last Filed: 12/05/20 07:18> Course - Vital Signs Text/Narrative:: Differential diagnosis: Acute cholecystitis, biliary colic, pancreatitis, pneumonia, PE, ACS, other Patient presents as outlined above. Patient has gallstone with hydrops of the gallbladder. She is still persistently tender despite pain medications in the emergency department. Surgery evaluated the patient and feels that with the gallbladder distention the entire clinical picture that this represents early acute cholecystitis. Admission, antibiotics and surgical resection Last Recorded V/S: Last Vital Signs Temp 36.3 C 12/05/20 04:34 Pulse 59 L 12/05/20 04:34 Resp 15 12/05/20 04:34 BP 119/56 L 12/05/20 04:34 Pulse Ox 96 12/05/20 04:34 - Orders/Labs/Meds Orders: Active Orders 24 hr Category Date Time Status Patient Status [ADT] Routine ADT 12/04/20 11:51 Active Ambulate [RC] ASDIRECTED Care 12/04/20 11:51 Active Oxygen Therapy [RC] PRN Care 12/04/20 11:51 Active Pulse Oximetry [RC] CONTINUOUS Care 12/04/20 11:51 Active RT Incentive Spirometry [RC] ASDIRECTED Care 12/04/20 11:51 Active Vital Signs [RC] PER UNIT ROUTINE Care 12/04/20 11:51 Active Lactated Ringers [Ringers, Lactated] 1,000 ml Med 12/04/20 12:00 Active IV ASDIRECTED Ondansetron [Zofran] Med 12/04/20 11:52 Active 4 mg IVPUSH Q6H PRN Pantoprazole [ProTONIX IV] 40 mg Med 12/05/20 09:00 Active Sodium Chloride 0.9% [Normal Saline] 10 ml IV DAILY Sodium Chloride 0.9% [Normal Saline] Med 12/04/20 11:51 Active 10 ml IV ASDIRECTED PRN Sodium Chloride 0.9% [Saline Flush] Med 12/04/20 06:20 Active 10 ml FLUSH ASDIRECTED PRN Sodium Chloride 0.9% [Saline Flush] Med 12/04/20 11:51 Active 10 ml FLUSH ASDIRECTED PRN Sodium Chloride 0.9% [Saline Flush] Med 12/04/20 06:20 Active 2.5 ml FLUSH ASDIRECTED PRN Sodium Chloride 0.9% [Saline Flush] Med 12/04/20 11:51 Active 2.5 ml FLUSH ASDIRECTED PRN diphenhydrAMINE [Benadryl] Med 12/04/20 11:51 Active 25 mg IVPUSH Q4H PRN Peripheral IV Insertion Adult [OM.PC] Routine Oth 12/04/20 11:51 Ordered Saline Lock Insert [OM.PC] Stat Oth 12/04/20 06:20 Ordered Resuscitation Status Routine Resus Stat 12/04/20 11:51 Ordered Medication Orders Diphenhydramine HCl (Diphenhydramine 50 Mg/Ml Sdv) 25 mg IVPUSH Q4H PRN PRN Reason: Itching Hydromorphone HCl (Hydromorphone 1 Mg/Ml Syringe) 0.5 mg IVPUSH Q1H PRN PRN Reason: Abdominal Pain Last Admin: 12/05/20 00:02 Dose: 0.5 mg Documented by: BILL Lactated Ringer's (Ringers, Lactated) 1,000 mls @ 125 mls/hr IV ASDIRECTED SABIHA Last Admin: 12/04/20 23:45 Dose: 125 mls/hr Documented by: Infusion: 12/04/20 22:17 Dose: 125 mls/hr Documented by: Admin: 12/04/20 14:17 Dose: 125 mls/hr Documented by: Infusion: 12/04/20 14:17 Dose: 125 mls/hr Documented by: Admin: 12/04/20 12:54 Dose: 125 mls/hr Documented by: NIKA Pantoprazole Sodium 40 mg/ (Sodium Chloride) 10 mls @ 300 mls/hr IV DAILY SABIHA Ciprofloxacin/Dextrose 400 mg/ (Premix) 200 mls @ 200 mls/hr IV Q12H SAIBHA Last Admin: 12/05/20 04:29 Dose: 200 mls/hr Documented by: Infusion: 12/04/20 17:08 Dose: 200 mls/hr Documented by: Admin: 12/04/20 16:08 Dose: 200 mls/hr Documented by: REESE Metronidazole 500 mg/ Premix 100 mls @ 100 mls/hr IV QID SABIHA Last Admin: 12/05/20 05:54 Dose: 100 mls/hr Documented by: Infusion: 12/05/20 01:04 Dose: 100 mls/hr Documented by: Admin: 12/05/20 00:04 Dose: 100 mls/hr Documented by: Infusion: 12/04/20 18:22 Dose: 100 mls/hr Documented by: Admin: 12/04/20 17:22 Dose: 100 mls/hr Documented by: REESE Ondansetron HCl (Ondansetron 4 Mg/2 Ml Sdv) 4 mg IVPUSH Q6H PRN PRN Reason: Nausea/Vomiting Last Admin: 12/05/20 00:01 Dose: 4 mg Documented by: Admin: 12/04/20 14:17 Dose: 4 mg Documented by: BENIGNO Oxycodone/Acetaminophen (Acetaminophen/Oxycodone 325-5 Mg Tab) 2 tab PO Q4H PRN PRN Reason: Pain (severe 7-10) Last Admin: 12/04/20 16:19 Dose: 2 tab Documented by: ERESE Scopolamine (Scopolamine 1.5 Mg Transdermal Patch) 1.5 mg TRDERM Q72H SABIHA Last Admin: 12/04/20 17:39 Dose: 1.5 mg Documented by: REESE Sodium Chloride (Sodium Chloride 0.9% 10 Ml Syringe) 10 ml FLUSH ASDIRECTED PRN PRN Reason: Keep Vein Open Last Admin: 12/04/20 07:40 Dose: 10 ml Documented by: NIYAH Sodium Chloride (Sodium Chloride 0.9% 2.5 Ml Syringe) 2.5 ml FLUSH ASDIRECTED PRN PRN Reason: Keep Vein Open Last Admin: 12/04/20 07:40 Dose: 2.5 ml Documented by: NIYAH Sodium Chloride (Sodium Chloride 0.9% 10 Ml Syringe) 10 ml FLUSH ASDIRECTED PRN PRN Reason: Keep Vein Open Sodium Chloride (Sodium Chloride 0.9% 2.5 Ml Syringe) 2.5 ml FLUSH ASDIRECTED PRN PRN Reason: Keep Vein Open Sodium Chloride (Sodium Chloride 0.9% 10 Ml Sdv) 10 ml IV ASDIRECTED PRN PRN Reason: IV Use Labs: Laboratory Tests 12/04/20 12/04/20 12/04/20 Range/Units 06:20 06:20 06:20 WBC 8.00 (4.0-11.0) K/uL RBC 4.82 (4.30-5.90) M/uL Hgb 13.5 (12.0-16.0) g/dL Hct 39.5 (36.0-46.0) % MCV 82.0 (80.0-98.0) fL MCH 28.0 (27.0-32.0) pg MCHC 34.2 (31.0-37.0) g/dL RDW Std Deviation 43.5 (28.0-62.0) fl RDW Coeff of Tea 15 (11.0-15.0) % Plt Count 302 (150-400) K/uL MPV 10.80 (7.40-12.00) fL Neut % (Auto) 41.8 L (48.0-80.0) % Lymph % (Auto) 45.0 H (16.0-40.0) % [place] % (Auto) 9.1 (0.0-15.0) % Eos % (Auto) 3.8 (0.0-7.0) % Baso % (Auto) 0.3 (0.0-1.5) % Neut # (Auto) 3.4 (1.4-5.7) K/uL Lymph # (Auto) 3.6 H (0.6-2.4) K/uL [place] # (Auto) 0.7 (0.0-0.8) K/uL Eos # (Auto) 0.3 (0.0-0.7) K/uL Baso # (Auto) 0.0 (0.0-0.1) K/uL Nucleated RBC % 0.0 /100WBC Nucleated RBCs # 0 K/uL Sodium 137 (136-145) mmol/L Potassium 4.0 (3.5-5.1) mmol/L Chloride 103 (98-107) mmol/L Carbon Dioxide 21.9 (21.0-32.0) mmol/L BUN 19 H (7.0-18.0) mg/dL Creatinine 0.9 (0.6-1.0) mg/dL Est Cr Clr Drug Dosing 80.80 mL/min Estimated GFR (MDRD) > 60.0 ml/min Glucose 97 (74-106) mg/dL Hemoglobin A1c (4.5 - 6.2) % Calcium 8.3 L (8.5-10.1) mg/dL Total Bilirubin 0.2 (0.2-1.0) mg/dL AST 35 (15-37) IU/L ALT 52 (14-63) IU/L Alkaline Phosphatase 94 (46-116) U/L Total Protein 7.6 (6.4-8.2) g/dL Albumin 3.6 (3.4-5.0) g/dL Globulin 4.0 (2.6-4.0) g/dL Albumin/Globulin Ratio 0.9 (0.9-1.6) Lipase 91 (73-393) U/L HCG, Qual NEGATIVE (NEG) Urine Color Urine Appearance Urine pH (5.0-8.0) Ur Specific [place] (1.001-1.035) Urine Protein (NEGATIVE) mg/dL Urine Glucose (UA) (NEGATIVE) mg/dL Urine Ketones (NEGATIVE) mg/dL Urine Occult Blood (NEGATIVE) Urine Nitrite (NEGATIVE) Urine Bilirubin (NEGATIVE) Urine Urobilinogen (<2.0) EU/dL Ur Leukocyte Esterase (NEGATIVE) Urine RBC (0-2/HPF) Urine WBC (0-5/HPF) Ur Epithelial Cells (NONE-FEW) Urine Bacteria (NEGATIVE) Urine Mucus (NONE-MOD) SARS-CoV-2 RNA (ALEXIS) (NEGATIVE) 12/04/20 12/04/20 12/04/20 Range/Units 06:20 08:20 11:40 WBC (4.0-11.0) K/uL RBC (4.30-5.90) M/uL Hgb (12.0-16.0) g/dL Hct (36.0-46.0) % MCV (80.0-98.0) fL MCH (27.0-32.0) pg MCHC (31.0-37.0) g/dL RDW Std Deviation (28.0-62.0) fl RDW Coeff of Tea (11.0-15.0) % Plt Count (150-400) K/uL MPV (7.40-12.00) fL Neut % (Auto) (48.0-80.0) % Lymph % (Auto) (16.0-40.0) % [place] % (Auto) (0.0-15.0) % Eos % (Auto) (0.0-7.0) % Baso % (Auto) (0.0-1.5) % Neut # (Auto) (1.4-5.7) K/uL Lymph # (Auto) (0.6-2.4) K/uL [place] # (Auto) (0.0-0.8) K/uL Eos # (Auto) (0.0-0.7) K/uL Baso # (Auto) (0.0-0.1) K/uL Nucleated RBC % /100WBC Nucleated RBCs # K/uL Sodium (136-145) mmol/L Potassium (3.5-5.1) mmol/L Chloride (98-107) mmol/L Carbon Dioxide (21.0-32.0) mmol/L BUN (7.0-18.0) mg/dL Creatinine (0.6-1.0) mg/dL Est Cr Clr Drug Dosing mL/min Estimated GFR (MDRD) ml/min Glucose (74-106) mg/dL Hemoglobin A1c <3.8 L (4.5 - 6.2) % Calcium (8.5-10.1) mg/dL Total Bilirubin (0.2-1.0) mg/dL AST (15-37) IU/L ALT (14-63) IU/L Alkaline Phosphatase (46-116) U/L Total Protein (6.4-8.2) g/dL Albumin (3.4-5.0) g/dL Globulin (2.6-4.0) g/dL Albumin/Globulin Ratio (0.9-1.6) Lipase (73-393) U/L HCG, Qual (NEG) Urine Color YELLOW Urine Appearance CLEAR Urine pH 6.0 (5.0-8.0) Ur Specific [place] 1.015 (1.001-1.035) Urine Protein NEGATIVE (NEGATIVE) mg/dL Urine Glucose (UA) NEGATIVE (NEGATIVE) mg/dL Urine Ketones NEGATIVE (NEGATIVE) mg/dL Urine Occult Blood SMALL H (NEGATIVE) Urine Nitrite NEGATIVE (NEGATIVE) Urine Bilirubin NEGATIVE (NEGATIVE) Urine Urobilinogen 0.2 (<2.0) EU/dL Ur Leukocyte Esterase NEGATIVE (NEGATIVE) Urine RBC 0-2 (0-2/HPF) Urine WBC 0-1 (0-5/HPF) Ur Epithelial Cells OCCASIONAL (NONE-FEW) Urine Bacteria FEW (NEGATIVE) Urine Mucus LIGHT (NONE-MOD) SARS-CoV-2 RNA (ALEXIS) NEGATIVE (NEGATIVE) Meds: Medications Generic Name Dose Route Start Last Admin Trade Name Freq PRN Reason Stop Dose Admin Diphenhydramine HCl 25 mg 12/04/20 11:51 Diphenhydramine 50 Mg/Ml Sdv IVPUSH Q4H PRN Itching Hydromorphone HCl 0.5 mg 12/04/20 14:00 12/05/20 00:02 Hydromorphone 1 Mg/Ml Syringe IVPUSH 0.5 mg Q1H PRN Administration Abdominal Pain Lactated Ringer's 1,000 mls @ 125 mls/hr 12/04/20 12:00 12/04/20 23:45 Ringers, Lactated IV 125 mls/hr ASDIRECTED SABIHA Administration Pantoprazole Sodium 40 mg/ 10 mls @ 300 mls/hr 12/05/20 09:00 Sodium Chloride IV DAILY SABIHA Ciprofloxacin/Dextrose 400 mg/ 200 mls @ 200 mls/hr 12/04/20 15:30 12/05/20 04:29 Premix IV 200 mls/hr Q12H SABIHA Administration Metronidazole 500 mg/ Premix 100 mls @ 100 mls/hr 12/04/20 18:00 12/05/20 05:54 IV 100 mls/hr QID SABIHA Administration Ondansetron HCl 4 mg 12/04/20 11:52 12/05/20 00:01 Ondansetron 4 Mg/2 Ml Sdv IVPUSH 4 mg Q6H PRN Administration Nausea/Vomiting Oxycodone/Acetaminophen 2 tab 12/04/20 13:59 12/04/20 16:19 Acetaminophen/Oxycodone 325-5 Mg Tab PO 2 tab Q4H PRN Administration Pain (severe 7-10) Scopolamine 1.5 mg 12/04/20 14:00 12/04/20 17:39 Scopolamine 1.5 Mg Transdermal Patch TRDERM 1.5 mg Q72H SABIHA Administration Sodium Chloride 10 ml 12/04/20 06:20 12/04/20 07:40 Sodium Chloride 0.9% 10 Ml Syringe FLUSH 10 ml ASDIRECTED PRN Administration Keep Vein Open Sodium Chloride 2.5 ml 12/04/20 06:20 12/04/20 07:40 Sodium Chloride 0.9% 2.5 Ml Syringe FLUSH 2.5 ml ASDIRECTED PRN Administration Keep Vein Open Sodium Chloride 10 ml 12/04/20 11:51 Sodium Chloride 0.9% 10 Ml Syringe FLUSH ASDIRECTED PRN Keep Vein Open Sodium Chloride 2.5 ml 12/04/20 11:51 Sodium Chloride 0.9% 2.5 Ml Syringe FLUSH ASDIRECTED PRN Keep Vein Open Sodium Chloride 10 ml 12/04/20 11:51 Sodium Chloride 0.9% 10 Ml Sdv IV ASDIRECTED PRN IV Use Discontinued Medications Generic Name Dose Route Start Last Admin Trade Name Freq PRN Reason Stop Dose Admin Dicyclomine HCl 20 mg 12/04/20 06:20 12/04/20 06:30 Dicyclomine 10 Mg Cap PO 12/04/20 06:21 20 mg ONETIME ONE Administration Fentanyl 100 mcg 12/04/20 06:22 12/04/20 06:30 Fentanyl 50 Mcg/Ml Sdv IVPUSH 12/04/20 06:23 100 mcg ONETIME ONE Administration Hydromorphone HCl 0.5 mg 12/04/20 11:51 Hydromorphone 2 Mg/Ml Syringe IVPUSH Q1H PRN Abdominal Pain Sodium Chloride 1,000 mls @ 999 mls/hr 12/04/20 06:20 12/04/20 06:30 Normal Saline IV 12/04/20 07:20 999 mls/hr .Bolus ONE Administration Ciprofloxacin/Dextrose 400 mg/ 200 mls @ 200 mls/hr 12/04/20 11:36 12/04/20 12:53 Premix IV 12/04/20 12:35 200 mls/hr NOW STA Administration Metronidazole 500 mg/ Premix 100 mls @ 100 mls/hr 12/04/20 11:39 12/04/20 12:51 IV 12/04/20 12:38 100 mls/hr ONETIME ONE Administration Iopamidol 100 ml 12/04/20 08:20 12/04/20 08:20 Iopamidol 755 Mg/Ml 500 Ml Multipack Bottle IVPUSH 12/04/20 08:21 100 ml ONETIME STA Administration Ketorolac Tromethamine 15 mg 12/04/20 06:20 12/04/20 06:30 Ketorolac 15 Mg/Ml Sdv IVPUSH 12/04/20 06:21 15 mg ONETIME ONE Administration Ondansetron HCl 4 mg 12/04/20 06:20 12/04/20 06:30 Ondansetron 4 Mg/2 Ml Sdv IVPUSH 12/04/20 06:21 4 mg ONETIME ONE Administration Departure - Departure Time of Disposition: 09:30 Condition: Good
[2020-12-04] MEDS ORDERED: fentaNYL 50 MCG/ML SDV IVPUSH ONE (06:22)
[2020-12-04 07:07] LABS: BLOOD UREA NITROGEN,BUN 19 mg/dL (7.0-18.0); CARBON DIOXIDE,CO2 21.9 mmol/L (21.0-32.0); CHLORIDE,CL 103 mmol/L (98-107); GLUCOSE RANDOM 97 mg/dL (74-106); LIPASE 91 U/L (73-393); SODIUM,NA 137 mmol/L (136-145)
[2020-12-04] MEDS ORDERED: Iopamidol 755 MG/ML 500 ML Multipack Bottle IVPUSH STA (08:20)
--- NOTE | 2020-12-04 08:57 | CT ---
Indication: Known gallstone, abdominal Pain Technique: Volumetric multidetector CT images of the abdomen and pelvis were obtained after the administration of intravenous contrast. 100 cc Isovue 370 low osmolar intravenous contrast Comparison: Right upper quadrant ultrasound November 30, 2020 Findings: The lung bases are clear. The liver is normal in attenuation without intrahepatic biliary ductal dilatation. The portal vein is patent. There is demonstration of dependent gallstone within the gallbladder with mild hydropic appearance of the gallbladder. There is no significant common biliary ductal dilatation or abrupt cut off. The spleen is normal in enhancement and size. The stomach and duodenum are grossly unremarkable. The pancreas is normal in enhancement without significant atrophy. The adrenal glands are unremarkable. The kidneys demonstrate preserved corticomedullary differentiation without evidence of obstructive uropathy. There is moderate stool seen throughout the colon with mild to moderate colonic diverticulosis without evidence of diverticulitis. The appendix is unremarkable. There is no significant mesenteric, retroperitoneal, or pelvic sidewall lymph nodes. The aorta is nonaneurysmal. There is no significant atherosclerotic disease appreciated. The solid pelvic viscera are grossly unremarkable. There is no free fluid or free air. The anterior abdominal wall is intact without significant hernias. The lumbar vertebral body heights are grossly maintained with mild multi-level degenerative disc disease. There is mild to moderate facet arthrosis. Impression: Moderate stool seen throughout the colon with mild to moderate colonic diverticulosis without evidence of diverticulitis. Redemonstration of cholelithiasis and mild hydropic appearance of the gallbladder. Otherwise, no definite acute intra-abdominal abnormality. Please note that all CT scans at this facility use dose modulation, iterative reconstruction, and/or weight-based dosing when appropriate to reduce radiation dose to as low as reasonably achievable. Dictated by Vinayak Payan MD @ 12/04/2020 8:55:[address] Vinayak Payan @ Dec 04 2020 8:55AM
[2020-12-04] MEDS ORDERED: Ciprofloxacin in D5W 400 MG in Premix Bag 1 BAG IV STA ×2 (11:36)
[2020-12-04] MEDS ORDERED: metroNIDAZOLE/Normal Saline 500 MG in Premix Bag 1 BAG IV ONE (11:39)
[2020-12-04] MEDS ORDERED: Sodium Chloride 0.9% 10 ML SDV IV PRN (11:51)
[2020-12-04] MEDS ORDERED: diphenhydrAMINE 50 MG/ML SDV IVPUSH PRN (11:51)
[2020-12-04] MEDS ORDERED: HYDROmorphone 2 MG/ML Syringe IVPUSH PRN (11:51)
--- NOTE | 2020-12-04 11:53 | PCM.HP.2 ---
H&P History of Present Illness - General Date of Service: 12/04/20 Admit Problem/Dx: Admission Diagnosis/Problem Admission Diagnosis/Problem Acute cholecystitis Source of Information: Patient History Limitations: Reports: No Limitations - History of Present Illness Initial Comments - Free Text/Narative: Patient is a 40 year old female who presents with abdominal pain. She states that for the past month she has noticed increased upper abdominal pain after meals. She came to the ER a couple days ago with what she thought was food poisoning. She was given medications in the ER and her pain and nausea resolved. Her labs were normal. US of the abdomen showed cholelithiasis with no evidence of acute cholecystitis. She woke up this morning and the pain was the most severe it have ever been. It did not resolve so she presented to the ER. Her vitals were stable. Labs were normal. CT scan of the abdomen pelvis showed a stone in the neck of the gallbladder with signs of hydrops. She states that taking a deep breath aggravates the pain. She was given pain meds with improve ment but not resolution of her discomfort. Abdomen Pain Score (Numeric/FACES): 10 - Related Data Allergies/Adverse Reactions: Allergies Allergy/AdvReac Type Severity Reaction Status Date / Time amoxicillin Allergy Vomiting Verified 12/04/20 13:48 Home Medications: Home Meds Pantoprazole [ProTONIX] 40 mg PO DAILY 11/25/20 [History] Past Medical History Cardiovascular History: Reports: None Respiratory History: Reports: None Gastrointestinal History: Reports: GERD, Other (See Below) Other Gastrointestinal History: Gallstones Genitourinary History: Reports: None CORE FINISHER History: Reports: None Musculoskeletal History: Reports: None Neurological History: Reports: None Psychiatric History: Reports: None Endocrine/Metabolic History: Reports: None Insulin Pump Model and Cardiology Specialist: None Hematologic History: Reports: None Immunologic History: Reports: None Oncologic (Cancer) History: Reports: None Dermatologic History: Reports: None - Infectious Disease History Infectious Disease History: Reports: Chicken Pox, Hepatitis C - Past Surgical History Head Surgeries/Procedures: Reports: None HEENT Surgical History: Reports: Oral Surgery, Tonsillectomy GI Surgical History: Reports: Appendectomy Social & Family History - Family History Cardiac: Reports: CAD, Heart Failure, Hypertension Neurological: Reports: Parkinson's - Caffeine Use Caffeine Use: Reports: None - Recreational Drug Use Recreational Drug Use: Yes Drug Use in Last 12 Months: Yes Recreational Drug Type: Reports: Other (see below) Other Recreational Drug Type: Medical Marijuana H&P Review of Systems - Review of Systems: Review Of Systems: See Below General: Reports: No Symptoms HEENT: Reports: No Symptoms Pulmonary: Reports: No Symptoms Cardiovascular: Reports: No Symptoms Gastrointestinal: Reports: Abdominal Pain, Nausea Genitourinary: Reports: No Symptoms Musculoskeletal: Reports: No Symptoms Skin: Reports: No Symptoms Exam - Exam Exam: See Below - Vital Signs Vital Signs: Last Vital Signs Temp 35.9 C L 12/04/20 06:05 Pulse 55 L 12/04/20 06:52 Resp 18 12/04/20 06:52 BP 123/74 12/04/20 06:52 Pulse Ox 97 12/04/20 06:52 Weight: 127.006 kg - Exam Quality Assessment: Supplemental Oxygen General: Alert, Oriented HEENT: Conjunctiva Clear, Mucosa Moist & [place], Posterior Pharynx Clear Neck: Supple Lungs: Clear to Auscultation, Normal Respiratory Effort Cardiovascular: Regular Rate, Regular Rhythm GI/Abdominal Exam: Normal Bowel Sounds, Soft, Non-Tender, No Distention, No Mass, Other (subjective tenderness with attempted murphys sign ) - Patient Data Lab Results Last 24 hrs: Laboratory Results - last 24 hr 12/04/20 12/04/20 12/04/20 Range/Units 06:20 06:20 06:20 WBC 8.00 (4.0-11.0) K/uL RBC 4.82 (4.30-5.90) M/uL Hgb 13.5 (12.0-16.0) g/dL Hct 39.5 (36.0-46.0) % MCV 82.0 (80.0-98.0) fL MCH 28.0 (27.0-32.0) pg MCHC 34.2 (31.0-37.0) g/dL RDW Std Deviation 43.5 (28.0-62.0) fl RDW Coeff of Tea 15 (11.0-15.0) % Plt Count 302 (150-400) K/uL MPV 10.80 (7.40-12.00) fL Neut % (Auto) 41.8 L (48.0-80.0) % Lymph % (Auto) 45.0 H (16.0-40.0) % [place] % (Auto) 9.1 (0.0-15.0) % Eos % (Auto) 3.8 (0.0-7.0) % Baso % (Auto) 0.3 (0.0-1.5) % Neut # (Auto) 3.4 (1.4-5.7) K/uL Lymph # (Auto) 3.6 H (0.6-2.4) K/uL [place] # (Auto) 0.7 (0.0-0.8) K/uL Eos # (Auto) 0.3 (0.0-0.7) K/uL Baso # (Auto) 0.0 (0.0-0.1) K/uL Nucleated RBC % 0.0 /100WBC Nucleated RBCs # 0 K/uL Sodium 137 (136-145) mmol/L Potassium 4.0 (3.5-5.1) mmol/L Chloride 103 (98-107) mmol/L Carbon Dioxide 21.9 (21.0-32.0) mmol/L BUN 19 H (7.0-18.0) mg/dL Creatinine 0.9 (0.6-1.0) mg/dL Est Cr Clr Drug Dosing 80.80 mL/min Estimated GFR (MDRD) > 60.0 ml/min Glucose 97 (74-106) mg/dL Calcium 8.3 L (8.5-10.1) mg/dL Total Bilirubin 0.2 (0.2-1.0) mg/dL AST 35 (15-37) IU/L ALT 52 (14-63) IU/L Alkaline Phosphatase 94 (46-116) U/L Total Protein 7.6 (6.4-8.2) g/dL Albumin 3.6 (3.4-5.0) g/dL Globulin 4.0 (2.6-4.0) g/dL Albumin/Globulin Ratio 0.9 (0.9-1.6) Lipase 91 (73-393) U/L HCG, Qual NEGATIVE (NEG) Urine Color Urine Appearance Urine pH (5.0-8.0) Ur Specific [place] (1.001-1.035) Urine Protein (NEGATIVE) mg/dL Urine Glucose (UA) (NEGATIVE) mg/dL Urine Ketones (NEGATIVE) mg/dL Urine Occult Blood (NEGATIVE) Urine Nitrite (NEGATIVE) Urine Bilirubin (NEGATIVE) Urine Urobilinogen (<2.0) EU/dL Ur Leukocyte Esterase (NEGATIVE) Urine RBC (0-2/HPF) Urine WBC (0-5/HPF) Ur Epithelial Cells (NONE-FEW) Urine Bacteria (NEGATIVE) Urine Mucus (NONE-MOD) 12/04/20 Range/Units 08:20 WBC (4.0-11.0) K/uL RBC (4.30-5.90) M/uL Hgb (12.0-16.0) g/dL Hct (36.0-46.0) % MCV (80.0-98.0) fL MCH (27.0-32.0) pg MCHC (31.0-37.0) g/dL RDW Std Deviation (28.0-62.0) fl RDW Coeff of Tea (11.0-15.0) % Plt Count (150-400) K/uL MPV (7.40-12.00) fL Neut % (Auto) (48.0-80.0) % Lymph % (Auto) (16.0-40.0) % [place] % (Auto) (0.0-15.0) % Eos % (Auto) (0.0-7.0) % Baso % (Auto) (0.0-1.5) % Neut # (Auto) (1.4-5.7) K/uL Lymph # (Auto) (0.6-2.4) K/uL [place] # (Auto) (0.0-0.8) K/uL Eos # (Auto) (0.0-0.7) K/uL Baso # (Auto) (0.0-0.1) K/uL Nucleated RBC % /100WBC Nucleated RBCs # K/uL Sodium (136-145) mmol/L Potassium (3.5-5.1) mmol/L Chloride (98-107) mmol/L Carbon Dioxide (21.0-32.0) mmol/L BUN (7.0-18.0) mg/dL Creatinine (0.6-1.0) mg/dL Est Cr Clr Drug Dosing mL/min Estimated GFR (MDRD) ml/min Glucose (74-106) mg/dL Calcium (8.5-10.1) mg/dL Total Bilirubin (0.2-1.0) mg/dL AST (15-37) IU/L ALT (14-63) IU/L Alkaline Phosphatase (46-116) U/L Total Protein (6.4-8.2) g/dL Albumin (3.4-5.0) g/dL Globulin (2.6-4.0) g/dL Albumin/Globulin Ratio (0.9-1.6) Lipase (73-393) U/L HCG, Qual (NEG) Urine Color YELLOW Urine Appearance CLEAR Urine pH 6.0 (5.0-8.0) Ur Specific [place] 1.015 (1.001-1.035) Urine Protein NEGATIVE (NEGATIVE) mg/dL Urine Glucose (UA) NEGATIVE (NEGATIVE) mg/dL Urine Ketones NEGATIVE (NEGATIVE) mg/dL Urine Occult Blood SMALL H (NEGATIVE) Urine Nitrite NEGATIVE (NEGATIVE) Urine Bilirubin NEGATIVE (NEGATIVE) Urine Urobilinogen 0.2 (<2.0) EU/dL Ur Leukocyte Esterase NEGATIVE (NEGATIVE) Urine RBC 0-2 (0-2/HPF) Urine WBC 0-1 (0-5/HPF) Ur Epithelial Cells OCCASIONAL (NONE-FEW) Urine Bacteria FEW (NEGATIVE) Urine Mucus LIGHT (NONE-MOD) Result Diagrams: 12/04/20 06:20 12/04/20 06:20 Sepsis Event Note - Focused Exam Vital Signs: Vital Signs Temp Pulse Resp BP Pulse Ox 12/04/20 06:52 55 L 18 123/74 97 12/04/20 06:05 35.9 C L 83 18 138/88 96 - Problem List (1) Abdominal pain SNOMED Code(s): 82109402 ICD Code: R10.9 - UNSPECIFIED ABDOMINAL PAIN Status: Acute Current Visit: No (2) Cholelithiasis without obstruction SNOMED Code(s): 76057577 ICD Code: K80.20 - CALCULUS OF GALLBLADDER W/O CHOLECYSTITIS W/O OBSTRUCTION Status: Acute Current Visit: No Problem List Initiated/Reviewed/Updated: Yes Orders Last 24hrs: Active Orders 24 hr Category Date Time Status Patient Status [ADT] Routine ADT 12/04/20 11:51 Active Ambulate [RC] ASDIRECTED Care 12/04/20 11:51 Active Oxygen Therapy [RC] PRN Care 12/04/20 11:51 Active Pulse Oximetry [RC] CONTINUOUS Care 12/04/20 11:51 Active RT Incentive Spirometry [RC] ASDIRECTED Care 12/04/20 11:51 Active Vital Signs [RC] PER UNIT ROUTINE Care 12/04/20 11:51 Active Nothing Per Oral Diet [DIET] Diet 12/04/20 Lunch Active CBC WITH AUTO DIFF [HEME] AM Lab 12/05/20 05:11 Ordered COMPREHENSIVE METABOLIC PN,CMP [CHEM] AM Lab 12/05/20 05:11 Ordered CORONAVIRUS COVID-19 ALEXIS [MOLEC] Stat Lab 12/04/20 11:40 Received Ciprofloxacin in D5W [Cipro in D5W 400 MG/200 ML] 400 Med 12/04/20 11:36 Active mg Premix Bag 1 bag IV NOW HYDROmorphone [Dilaudid] Med 12/04/20 11:51 Ordered 0.5 mg IVPUSH Q1H PRN Lactated Ringers @ 125 MLS/HR(1000ml) Med 12/04/20 12:00 Ordered Lactated Ringers [Ringers, Lactated] 1,000 ml IV ASDIRECTED Ondansetron [Zofran] Med 12/04/20 11:52 Ordered 4 mg IVPUSH Q6H PRN Pantoprazole [ProTONIX IV] 40 mg Med 12/05/20 09:00 Ordered Sodium Chloride 0.9% [Normal Saline] 10 ml IV DAILY Sodium Chloride 0.9% [Normal Saline] Med 12/04/20 11:51 Ordered 10 ml IV ASDIRECTED PRN Sodium Chloride 0.9% [Saline Flush] Med 12/04/20 06:20 Active 10 ml FLUSH ASDIRECTED PRN Sodium Chloride 0.9% [Saline Flush] Med 12/04/20 11:51 Ordered 10 ml FLUSH ASDIRECTED PRN Sodium Chloride 0.9% [Saline Flush] Med 12/04/20 06:20 Active 2.5 ml FLUSH ASDIRECTED PRN Sodium Chloride 0.9% [Saline Flush] Med 12/04/20 11:51 Ordered 2.5 ml FLUSH ASDIRECTED PRN diphenhydrAMINE [Benadryl] Med 12/04/20 11:51 Ordered 25 mg IVPUSH Q4H PRN metroNIDAZOLE/Normal Saline [Flagyl in NS 500 MG/100 ML Med 12/04/20 11:39 Active ] 500 mg Premix Bag 1 bag IV ONETIME Peripheral IV Insertion Adult [OM.PC] Routine Oth 12/04/20 11:51 Ordered Saline Lock Insert [OM.PC] Stat Oth 12/04/20 06:20 Ordered Resuscitation Status Routine Resus Stat 12/04/20 11:51 Ordered Medication Orders Ciprofloxacin/Dextrose 400 mg/ (Premix) 200 mls @ 200 mls/hr IV NOW STA Stop: 12/04/20 12:35 Metronidazole 500 mg/ Premix 100 mls @ 100 mls/hr IV ONETIME ONE Stop: 12/04/20 12:38 Sodium Chloride (Sodium Chloride 0.9% 10 Ml Syringe) 10 ml FLUSH ASDIRECTED PRN PRN Reason: Keep Vein Open Last Admin: 12/04/20 07:40 Dose: 10 ml Documented by: NIYAH Sodium Chloride (Sodium Chloride 0.9% 2.5 Ml Syringe) 2.5 ml FLUSH ASDIRECTED PRN PRN Reason: Keep Vein Open Last Admin: 12/04/20 07:40 Dose: 2.5 ml Documented by: NIYAH Assessment/Plan Comment:: The patient and I discussed the pathophysiology of biliary disease. The treatment for acute cholecystitis (which she likely has) is laparoscopic possible open cholecystectomy. We discussed the surgeries and the expected perioperative course for each. I will attempt this laparoscopically but convert to open should I be unable to perform it safely. We discussed the risks including bleeding infection or damage to surrounding structures. We discussed the post operative course. She verbalized understanding and wishes to proceed. Will admit to the hospital. IVF resucitation, clear liquid diet with NPO and midnight. IV meds for pain control. IV anti-emetics and a scopolamine patch. IV antibiotics as well schedule.
[2020-12-04] MEDS: Lactated Ringers 1,000 ML IV SCH ×3 (12:54→23:45)
[2020-12-04] MEDS ORDERED: Acetaminophen/oxyCODONE 325-5 MG Tab PO PRN (13:59)
[2020-12-04] MEDS ORDERED: HYDROmorphone 1 MG/ML Syringe IVPUSH PRN (14:00)
[2020-12-04] MEDS ORDERED: Scopolamine 1.5 MG Transdermal Patch TRDERM SCH (14:00)
[2020-12-04] MEDS: Ondansetron 4 MG/2 ML SDV IVPUSH PRN (14:17)
[2020-12-04 14:46] LABS: HEMOGLOBIN A1C <3.8 %
[2020-12-04] MEDS: Ciprofloxacin in D5W 400 MG in Premix Bag 1 BAG IV SCH ×2 (16:08)
[2020-12-04] MEDS: metroNIDAZOLE/Normal Saline 500 MG in Premix Bag 1 BAG IV SCH (17:22)
[2020-12-05] MEDS: Ondansetron 4 MG/2 ML SDV IVPUSH PRN (00:01)
[2020-12-05] MEDS: metroNIDAZOLE/Normal Saline 500 MG in Premix Bag 1 BAG IV SCH ×2 (00:04→05:54)
[2020-12-05] MEDS: Ciprofloxacin in D5W 400 MG in Premix Bag 1 BAG IV SCH ×2 (04:29)
[2020-12-05 06:30] LABS: BLOOD UREA NITROGEN,BUN 11 mg/dL (7.0-18.0); CARBON DIOXIDE,CO2 24.4 mmol/L (21.0-32.0); CHLORIDE,CL 106 mmol/L (98-107); GLUCOSE RANDOM 107 mg/dL (74-106); POTASSIUM,K 4.1 mmol/L (3.5-5.1); SODIUM,NA 139 mmol/L (136-145)
[2020-12-05] MEDS ORDERED: fentaNYL 250 MCG/5 ML SDV ONE ×2 (07:18→08:56)
[2020-12-05] MEDS ORDERED: Propofol 200 MG/20 ML SDV ONE (07:18)
[2020-12-05] MEDS ORDERED: Pantoprazole 40 MG in Sodium Chloride 0.9% 10 ML IV SCH (09:00)
[2020-12-05] MEDS ORDERED: Lidocaine 2% Jelly 30 ML Tube ONE (09:15)
[2020-12-05] MEDS ORDERED: Rocuronium Bromide 50 MG/5 ML Syringe ONE (09:15)
[2020-12-05] MEDS ORDERED: fentaNYL 100 MCG/2 ML SDV ONE (09:20)
[2020-12-05] MEDS ORDERED: Ondansetron 4 MG/2 ML SDV ONE (09:21)
[2020-12-05] MEDS ORDERED: Dexamethasone 4 MG/ML 5 ML MDV ONE (09:21)
[2020-12-05] MEDS ORDERED: Sugammadex Sodium 200 MG/2 ML VIAL ONE (09:44)
--- NOTE | 2020-12-05 10:09 | PCM.OPNOTE ---
- General Post-Op/Procedure Note Date of Surgery/Procedure: 12/05/20 Operative Procedure(s): Laparoscopic cholecystectomy Findings: Distended and inflamed gallbladder Pre Op Diagnosis: Cholelithiasis Post-Op Diagnosis: Acute cholecystitis Anesthesia Technique: MAC Primary Surgeon: Shasta Harrison Fluid Replacement, Intraop: 1,800 Output, Urine Amount: 350 EBL in mLs: 10 Condition: Stable Free Text/Narrative:: Intake & Output 12/04/20 12/05/20 12/05/20 22:59 06:59 14:59 Intake Total 0 1936 Output Total 0 800 Balance 0 1136
[2020-12-05] MEDS: Lactated Ringers 1,000 ML IV SCH (14:27)
--- NOTE | 2020-12-05 17:04 | PCM.DCSUM1 ---
Discharge Summary - Hospital Course Free Text/Narrative:: Patient is a 40-year-old female who presented the emergency room with intractable upper abdominal pain. She been seen a couple days ago in the ER for similar symptoms. She was found to have cholelithiasis with no evidence of cholecystitis. Since her labs were normal she was treated in the emergency room and her symptoms resolved. This morning she woke up with intractable pain that did not go away with time. Her vital signs were stable. Labs were normal. CT scan of the abdomen pelvis showed a distended bladder containing a stone at the neck of the gallbladder. There was hydrops of the gallbladder wall. The decision was made to admit her to the hospital for pain control and possible surgery. I explained to the patient that likely she had acute cholecystitis. I took her to the operating room the next day for a laparoscopic cholecystectomy. The bladder was distended and edematous consistent with acute cholecystitis. In the postoperative unit the patient had nausea and vomiting. This was controlled with various medications. She was brought to the floor. She took a long nap and afterwards felt better. She no longer felt nauseated and had no further episodes of vomiting. She is able to tolerate liquids and keep down a small amount of food. She was able to ambulate and her pain was well controlled. She urinated. She was cleared for discharge.. - Discharge Data Discharge Date: 12/05/20 Discharge Disposition: Home, Self-Care 01 Condition: Stable - Referral to Home Health Primary Care Physician: Veronica Richards, DO - Discharge Diagnosis/Problem(s) (1) Abdominal pain SNOMED Code(s): 10775504 ICD Code: R10.9 - UNSPECIFIED ABDOMINAL PAIN Status: Acute Current Visit: Yes (2) Cholelithiasis without obstruction SNOMED Code(s): 17225942 ICD Code: K80.20 - CALCULUS OF GALLBLADDER W/O CHOLECYSTITIS W/O OBSTRUCTION Status: Acute Current Visit: No (3) Cholelithiasis SNOMED Code(s): 174529195 ICD Code: K80.20 - CALCULUS OF GALLBLADDER W/O CHOLECYSTITIS W/O OBSTRUCTION Status: Acute Current Visit: Yes Qualifiers: Cholelithiasis location: gallbladder Cholecystitis presence: with cholecystitis Cholecystitis acuity: acute and chronic Biliary obstruction: without biliary obstruction Qualified Code(s): K80.12 - Calculus of gallbladder with acute and chronic cholecystitis without obstruction - Patient Summary/Data Operative Procedure(s) Performed: Laparoscopic cholecystectomy - Patient Instructions Diet: Regular Diet as Tolerated Activity: Rest and Relax Today Driving: Do Not Drive Showering/Bathing: No Showering (Until tuesday morning ), No Tub Bathing/Swimming (for 2 weeks ) Wound/Incision Care: Keep Operative Site/Wound Site Clean and Dry Notify Provider of: Fever, Increased Pain, Swelling and Redness, Drainage, Nausea and/or Vomiting - Discharge Plan *PRESCRIPTION DRUG MONITORING PROGRAM REVIEWED*: Yes *COPY OF PRESCRIPTION DRUG MONITORING REPORT IN PATIENT PRAMOD: Yes Home Medications: Home Meds Pantoprazole [ProTONIX] 40 mg PO DAILY 11/25/20 [History] ClonazePAM [KlonoPIN] 0.5 mg PO DAILY PRN 12/04/20 [History] Patient Handouts: Minimally Invasive Cholecystectomy, Care After, [id number] Referrals: Shasta Harrison MD [Physician] - Veronica Richards DO [Primary Care Provider] - - Discharge Summary/Plan Comment DC Time >30 min.: No Total # of Minutes for Discharge Time: 25 - General Info Functional Status: Reports: Pain Controlled, Tolerating Diet, Ambulating, Urinating - Review of Systems General: Reports: No Symptoms HEENT: Reports: No Symptoms Pulmonary: Reports: No Symptoms Cardiovascular: Reports: No Symptoms Gastrointestinal: Reports: No Symptoms Musculoskeletal: Reports: No Symptoms - Patient Data Vitals - Most Recent: Last Vital Signs Temp 35.9 C L 12/05/20 15:48 Pulse 56 L 12/05/20 15:48 Resp 22 H 12/05/20 15:48 BP 115/69 12/05/20 15:48 Pulse Ox 97 12/05/20 15:48 Weight - Most Recent: 129.274 kg I&O - Last 24 hours: Intake & Output 12/05/20 12/05/20 12/05/20 06:59 14:59 22:59 Intake Total 1936 1800 Output Total 800 350 100 Balance 1136 1450 -100 Lab Results - Last 24 hrs: Laboratory Results - last 24 hr 12/05/20 12/05/20 Range/Units 05:20 05:20 WBC 5.45 (4.0-11.0) K/uL RBC 4.11 L (4.30-5.90) M/uL Hgb 11.3 L (12.0-16.0) g/dL Hct 34.3 L (36.0-46.0) % MCV 83.5 (80.0-98.0) fL MCH 27.5 (27.0-32.0) pg MCHC 32.9 (31.0-37.0) g/dL RDW Std Deviation 44.2 (28.0-62.0) fl RDW Coeff of Tea 15 (11.0-15.0) % Plt Count 215 (150-400) K/uL MPV 10.30 (7.40-12.00) fL Neut % (Auto) 47.0 L (48.0-80.0) % Lymph % (Auto) 39.8 (16.0-40.0) % [place] % (Auto) 8.8 (0.0-15.0) % Eos % (Auto) 4.0 (0.0-7.0) % Baso % (Auto) 0.4 (0.0-1.5) % Neut # (Auto) 2.6 (1.4-5.7) K/uL Lymph # (Auto) 2.2 (0.6-2.4) K/uL [place] # (Auto) 0.5 (0.0-0.8) K/uL Eos # (Auto) 0.2 (0.0-0.7) K/uL Baso # (Auto) 0.0 (0.0-0.1) K/uL Nucleated RBC % 0.0 /100WBC Nucleated RBCs # 0 K/uL Sodium 139 (136-145) mmol/L Potassium 4.1 (3.5-5.1) mmol/L Chloride 106 (98-107) mmol/L Carbon Dioxide 24.4 (21.0-32.0) mmol/L BUN 11 (7.0-18.0) mg/dL Creatinine 0.9 (0.6-1.0) mg/dL Est Cr Clr Drug Dosing 80.80 mL/min Estimated GFR (MDRD) > 60.0 ml/min Glucose 107 H (74-106) mg/dL Calcium 7.5 L (8.5-10.1) mg/dL Total Bilirubin 0.3 (0.2-1.0) mg/dL AST 28 (15-37) IU/L ALT 40 (14-63) IU/L Alkaline Phosphatase 51 (46-116) U/L Total Protein 6.0 L (6.4-8.2) g/dL Albumin 2.8 L (3.4-5.0) g/dL Globulin 3.2 (2.6-4.0) g/dL Albumin/Globulin Ratio 0.9 (0.9-1.6) Med Orders - Current: Current Medications Diphenhydramine HCl (Diphenhydramine 50 Mg/Ml Sdv) 25 mg IVPUSH Q4H PRN PRN Reason: Itching Hydromorphone HCl (Hydromorphone 1 Mg/Ml Syringe) 0.5 mg IVPUSH Q1H PRN PRN Reason: Abdominal Pain Last Admin: 12/05/20 00:02 Dose: 0.5 mg Documented by: Ondansetron HCl (Ondansetron 4 Mg/2 Ml Sdv) 4 mg IVPUSH Q6H PRN PRN Reason: Nausea/Vomiting Last Admin: 12/05/20 00:01 Dose: 4 mg Documented by: Oxycodone/Acetaminophen (Acetaminophen/Oxycodone 325-5 Mg Tab) 2 tab PO Q4H PRN PRN Reason: Pain (severe 7-10) Last Admin: 12/04/20 16:19 Dose: 2 tab Documented by: Scopolamine (Scopolamine 1.5 Mg Transdermal Patch) 1.5 mg TRDERM Q72H [facility] Last Admin: 12/04/20 17:39 Dose: 1.5 mg Documented by: Sodium Chloride (Sodium Chloride 0.9% 10 Ml Syringe) 10 ml FLUSH ASDIRECTED PRN PRN Reason: Keep Vein Open Last Admin: 12/04/20 07:40 Dose: 10 ml Documented by: Sodium Chloride (Sodium Chloride 0.9% 2.5 Ml Syringe) 2.5 ml FLUSH ASDIRECTED PRN PRN Reason: Keep Vein Open Last Admin: 12/04/20 07:40 Dose: 2.5 ml Documented by: Sodium Chloride (Sodium Chloride 0.9% 10 Ml Syringe) 10 ml FLUSH ASDIRECTED PRN PRN Reason: Keep Vein Open Sodium Chloride (Sodium Chloride 0.9% 2.5 Ml Syringe) 2.5 ml FLUSH ASDIRECTED PRN PRN Reason: Keep Vein Open Sodium Chloride (Sodium Chloride 0.9% 10 Ml Sdv) 10 ml IV ASDIRECTED PRN PRN Reason: IV Use Discontinued Medications Dexamethasone (Dexamethasone 4 Mg/Ml 5 Ml Mdv) Confirm Administered Dose 20 mg .ROUTE .STK-MED ONE Stop: 12/05/20 09:22 Dicyclomine HCl (Dicyclomine 10 Mg Cap) 20 mg PO ONETIME ONE Stop: 12/04/20 06:21 Last Admin: 12/04/20 06:30 Dose: 20 mg Documented by: Fentanyl (Fentanyl 50 Mcg/Ml Sdv) 100 mcg IVPUSH ONETIME ONE Stop: 12/04/20 06:23 Last Admin: 12/04/20 06:30 Dose: 100 mcg Documented by: Fentanyl (Fentanyl 250 Mcg/5 Ml Sdv) Confirm Administered Dose 250 mcg .ROUTE .STK-MED ONE Stop: 12/05/20 07:19 Fentanyl (Fentanyl 250 Mcg/5 Ml Sdv) Confirm Administered Dose 250 mcg .ROUTE .STK-MED ONE Stop: 12/05/20 08:57 Fentanyl (Fentanyl 100 Mcg/2 Ml Sdv) Confirm Administered Dose 100 mcg .ROUTE .STK-MED ONE Stop: 12/05/20 09:21 Hydromorphone HCl (Hydromorphone 2 Mg/Ml Syringe) 0.5 mg IVPUSH Q1H PRN PRN Reason: Abdominal Pain Sodium Chloride (Normal Saline) 1,000 mls @ 999 mls/hr IV .Bolus ONE Stop: 12/04/20 07:20 Last Admin: 12/04/20 06:30 Dose: 999 mls/hr Documented by: Ciprofloxacin/Dextrose 400 mg/ (Premix) 200 mls @ 200 mls/hr IV NOW STA Stop: 12/04/20 12:35 Last Admin: 12/04/20 12:53 Dose: 200 mls/hr Documented by: Metronidazole 500 mg/ Premix 100 mls @ 100 mls/hr IV ONETIME ONE Stop: 12/04/20 12:38 Last Admin: 12/04/20 12:51 Dose: 100 mls/hr Documented by: Lactated Ringer's (Ringers, Lactated) 1,000 mls @ 125 mls/hr IV ASDIRECTED SABIHA Last Admin: 12/05/20 14:27 Dose: 125 mls/hr Documented by: Pantoprazole Sodium 40 mg/ (Sodium Chloride) 10 mls @ 300 mls/hr IV DAILY [facility] Last Admin: 12/05/20 08:00 Dose: 300 mls/hr Documented by: Ciprofloxacin/Dextrose 400 mg/ (Premix) 200 mls @ 200 mls/hr IV Q12H [facility] Last Admin: 12/05/20 04:29 Dose: 200 mls/hr Documented by: Metronidazole 500 mg/ Premix 100 mls @ 100 mls/hr IV QID [facility] Last Admin: 12/05/20 05:54 Dose: 100 mls/hr Documented by: Acetaminophen (Ofirmev 1000 Mg/100 Ml) Confirm Administered Dose 100 mls @ as directed .ROUTE .STK-MED ONE Stop: 12/05/20 07:18 Iopamidol (Iopamidol 755 Mg/Ml 500 Ml Multipack Bottle) 100 ml IVPUSH ONETIME STA Stop: 12/04/20 08:21 Last Admin: 12/04/20 08:20 Dose: 100 ml Documented by: Ketorolac Tromethamine (Ketorolac 15 Mg/Ml Sdv) 15 mg IVPUSH ONETIME ONE Stop: 12/04/20 06:21 Last Admin: 12/04/20 06:30 Dose: 15 mg Documented by: Lidocaine HCl (Lidocaine 2% Jelly 30 Ml Tube) Confirm Administered Dose 30 ml .ROUTE .STK-MED ONE Stop: 12/05/20 09:16 Ondansetron HCl (Ondansetron 4 Mg/2 Ml Sdv) 4 mg IVPUSH ONETIME ONE Stop: 12/04/20 06:21 Last Admin: 12/04/20 06:30 Dose: 4 mg Documented by: Ondansetron HCl (Ondansetron 4 Mg/2 Ml Sdv) Confirm Administered Dose 4 mg .ROUTE .STK-MED ONE Stop: 12/05/20 09:22 Propofol (Propofol 200 Mg/20 Ml Sdv) Confirm Administered Dose 200 mg .ROUTE .STK-MED ONE Stop: 12/05/20 07:19 Rocuronium [place] (Rocuronium [place] 50 Mg/5 Ml Syringe) Confirm Administered Dose 50 mg .ROUTE .STK-MED ONE Stop: 12/05/20 09:16 Succinylcholine Chloride (Succinylcholine Chloride 200 Mg/10 Ml Syr) Confirm Administered Dose 200 mg .ROUTE .STK-MED ONE Stop: 12/05/20 09:16 Sugammadex Sodium (Sugammadex Sodium 200 Mg/2 Ml Vial) Confirm Administered Dose 200 mg .ROUTE .STK-MED ONE Stop: 12/05/20 09:45 - Exam General: Reports: Alert, Oriented, Cooperative HEENT: Reports: Pupils Equal, Pupils Reactive Lungs: Reports: Normal Respiratory Effort Cardiovascular: Reports: Regular Rate GI/Abdominal Exam: Soft, Non-Tender, No Distention, No Mass Skin: Reports: Warm, Dry, Intact Wound/Incisions: Reports: Dressing Dry and Intact
--- NOTE | 2020-12-05 18:42 | OR ---
SURGEON: SHASTA HARRISON MD DATE OF PROCEDURE: 12/05/2020 PREOPERATIVE DIAGNOSIS: Symptomatic cholelithiasis. POSTOPERATIVE DIAGNOSIS: Acute cholecystitis due to biliary calculi. PROCEDURE PERFORMED: Laparoscopic cholecystectomy. PRIMARY SURGEON: Shasta Harrison MD ANESTHESIA: General endotracheal anesthesia. FLUIDS: 1800 mL crystalloid. ESTIMATED BLOOD LOSS: 10 mL. URINE OUTPUT: 350 mL. FINDINGS: Distended and inflamed gallbladder. COMPLICATIONS: None. INDICATIONS: The patient is a 40-year-old female who presented to the emergency room with intractable upper abdominal pain. Laboratory work was normal, but a CT scan showed a distended gallbladder that appeared hydropic. The patient was admitted to the hospital and treated with IV fluids, bowel rest, and IV pain medications. I explained to the patient that most likely her symptoms are due to an obstruction of her gallbladder due to biliary calculus, which was also seen on CT scan. Likely, she has acute cholecystitis. The treatment is a cholecystectomy. I would attempt it laparoscopically and convert to open should I be unable to perform it safely. I explained the expected perioperative course, and the risks including bleeding, infection, or damage to surrounding structures. She verbalized understanding and wishes to proceed. PROCEDURE IN DETAIL: The patient was brought to the OR and placed on the OR table in supine position. A time-out was completed verifying the patient's name, age, date of , allergies, and procedure to be performed. General endotracheal anesthesia was induced. The left arm was tucked to the patient's side, and a Townsend catheter placed. The abdomen was then prepped and draped in usual standard fashion. I anesthetized the infraumbilical midline with 0.5% Marcaine plain. An 11 blade was used to make an incision along the infraumbilical midline. Cautery was used to dissect down to the level of subcutaneous fat. Using a combination of blunt dissection and cautery, I dissected down to the fascia. The fascia was elevated with Kochers and incised sharply with curved Arriaga scissors. The posterior fascia was grasped with Kellys and incised sharply as well. Using blunt dissection, I opened up the peritoneum. Entry into the abdomen was palpated digitally. A 12 mm Tran trocar was inserted into the abdomen and secured on either side using interrupted 0 Vicryl sutures. The abdomen was insufflated. A 5 mm 30-degree scope was inserted, and I inspected the area underneath my initial trocar placement. No damage to surrounding structures was noted. The patient was then placed into reverse Trendelenburg position and airplaned slightly to the left. 5 mm trocars were placed in the following locations under direct visualization; one in the epigastric area, one in the right flank, and one 2 fingerbreadths below the right subcostal margin in the midclavicular line. The dome of the gallbladder was grasped and elevated. There were some adhesions from the gallbladder to the surrounding omentum. These were taken down using blunt dissection and hook cautery. The gallbladder was then elevated to expose the infundibulum. The gallbladder itself was distended, and there appeared to be some edema within the tissue surrounding it. Using blunt dissection with suction and [place], I took down the tissues surrounding the cystic duct and artery. I then carried my dissection along the proximal cystic plate with the addition of hook cautery. Once I had cleared away 1/3 of the cystic plate and could clearly see my cystic duct and artery, a photograph was taken. Using indocyanine green imaging, I could identify the cystic duct. I then doubly clipped and ligated the cystic duct and artery. The remaining attachments of the gallbladder were taken down from the gallbladder to the cystic plate using hook cautery. The gallbladder was then placed in an Endo Catch bag and removed through the infraumbilical port site. I inspected my operative field. It appeared to be hemostatic, and a photograph was taken. I irrigated the upper right quadrant with normal saline and suctioned this out. My 5 mm trocars were removed under direct visualization, and the abdomen allowed to desufflate. The 12 mm Tran trocar was removed as well. I closed the fascia at the infraumbilical port site with interrupted 0 Vicryl sutures. The subcutaneous fat layer was closed with interrupted layers of 3-0 Vicryl suture. The skin was closed with a running 4-0 Monocryl stitch. The 5 mm trocar sites were closed with interrupted 4-0 Monocryl sutures. Dermabond and sterile dressings were applied. The patient tolerated the procedure well and was transferred to the PACU in stable condition. All counts were complete and correct at the end of the case. NAYELI / MODL /[id number]
== END 2020-12-05 18:22 | disposition home or self-care (01) ==
LOC: MW.ED 05:54 → MW.MS 13:13
PROVIDERS: ADMIT Surgery; ATTEND Surgery
DX: K81.2 Acute cholecystitis with chronic cholecystitis (principal); Z01.812 Encounter for preprocedural laboratory examination; Z20.822 Contact with and (suspected) exposure to COVID-19; Z88.1 Allergy status to other antibiotic agents; Z79.899 Other long term (current) drug therapy
CPT/HCPCS: 36415; 47562; 74177; 80053; 81001; 83036; 83690; 84703; 85025; 87635; 96365; 96366; 96368; 96375; 96376; 99285; A9270; C9113; G0378; J0131; J0330; J0744; J1100; J1170; J1885; J2405; J2704; J3010; J3490; J7030; J7120; Q9967; 88304; 99284; U0002

== ENCOUNTER 2022-06-20 15:43 | Emergency (ER) | payer BC, OTHER ==
[2022-06-20] MEDS ORDERED: Doxycycline 100 MG Cap PO STA (19:02)
[2022-06-20] MEDS ORDERED: Ketorolac 60 MG/2 ML SDV IM STA (19:06)
== END 2022-06-20 19:51 | disposition home or self-care (01) ==
LOC: MW.ED 15:43
DX: J01.90 Acute sinusitis, unspecified (principal); B96.89 Other specified bacterial agents as the cause of diseases classified elsewhere; K21.9 Gastro-esophageal reflux disease without esophagitis; Z88.0 Allergy status to penicillin; Z79.899 Other long term (current) drug therapy
CPT/HCPCS: 96372; 99283; A9270; J1885